=== PATIENT | male | born 1965 | race Caucasian/White ===

== ENCOUNTER 2018-02-25 15:43 | Inpatient (IN) | payer BC ==
[2018-02-25] MEDS ORDERED: NACL 0.9% 3 ML SYG IV (19:00)
[2018-02-25 19:30] LABS: ADD MAN DIFF? NO
[2018-02-25 19:33] LABS: WHITE BLOOD COUNT 9.7 10^3/ul (4.8-10.8)
[2018-02-25 19:33] LABS: BASOPHIL # 0.1 10^3/ul (0.0-0.1); BASOPHILS % 0.8 % (0.0-2.0); EOSINOPHILS # 0.3 10^3/ul (0.0-0.5); EOSINOPHILS % 3.4 % (0.0-7.0); HEMATOCRIT 36.1 % (42.0-52.0); HEMOGLOBIN 11.9 g/dl (14.0-18.0); LYMPHOCYTES # 1.4 10^3/ul (0.8-2.9); LYMPHOCYTES % 14.2 % (15.0-51.0); MEAN CORPUSCULAR HEMOGLOBIN 26.6 pg (29.0-33.0); MEAN CORPUSCULAR VOLUME 80.6 fl (82.0-101.0); MEAN PLATELET VOLUME 10.2 fl (7.4-10.4); MONOCYTES % 9.8 % (0.0-11.0); NEUTROPHIL # 6.9 10^3/ul (1.6-7.5); NEUTROPHILS % 71.3 % (39.0-77.0); PLATELET COUNT 252 10^3/UL (140-415); RED BLOOD COUNT 4.48 10^6/ul (4.70-6.10); RED CELL DISTRIBUTION WIDTH 14.5 % (11.5-14.5)
[2018-02-25 20:03] LABS: ANION GAP 12 (8-16); BLOOD UREA NITROGEN 17 mg/dl (7-20); CALCIUM 8.7 mg/dl (8.4-10.2); CARBON DIOXIDE 23 mmol/L (21-31); CHLORIDE 104 mmol/L (97-110); CREATININE 1.17 mg/dl (0.61-1.24); GLUCOSE 124 mg/dl (70-220); POTASSIUM 4.4 mmol/L (3.5-5.1); SODIUM 135 mmol/L (135-144)
[2018-02-25 20:13] LABS: ERYTHROCYTE SEDIMENTATION RATE 26 mm/Hr (0-20)
[2018-02-25] MEDS ORDERED: GLUCOSE GEL 15 GRAM TUBE BUCCAL (20:30)
[2018-02-25] MEDS ORDERED: GLUCAGON 1 MG INJ IM (20:30)
[2018-02-25] MEDS ORDERED: GLUCOSE GEL 15 GRAM TUBE PO ×2 (20:30)
[2018-02-25] MEDS ORDERED: DEXTROSE 50% 50 ML SYRINGE IV ×2 (20:30)
[2018-02-25] MEDS ORDERED: VANCOMYCIN IV PER PHARMACY XX (21:00)
[2018-02-25] MEDS: INSULIN ASPART [NOVOLOG] 3 ML PEN SC (21:00)
[2018-02-25] MEDS: INSULIN GLARGINE [LANTus] (100 UNITS/ML) SYG SC (21:38)
[2018-02-25] MEDS: PIPER-TAZO 3.375 GM IV (PMX) 100 ML IVPB (22:10)
[2018-02-26] MEDS: CALCIUM CARBONATE 500 MG CHEW TAB PO ×2 (01:02→23:17)
[2018-02-26] MEDS: VANCOMYCIN 2 GM in SOD CHLORIDE 0.9% 500 ML IVPB (01:02)
[2018-02-26] MEDS: PIPER-TAZO 3.375 GM IV (PMX) 100 ML IVPB ×3 (05:51→23:17)
[2018-02-26 06:40] LABS: WHITE BLOOD COUNT 8.2 10^3/ul (4.8-10.8)
[2018-02-26 06:40] LABS: ADD MAN DIFF? NO; BASOPHIL # 0.1 10^3/ul (0.0-0.1); BASOPHILS % 0.9 % (0.0-2.0); EOSINOPHILS # 0.4 10^3/ul (0.0-0.5); EOSINOPHILS % 5.1 % (0.0-7.0); HEMATOCRIT 36.9 % (42.0-52.0); HEMOGLOBIN 11.9 g/dl (14.0-18.0); LYMPHOCYTES # 1.8 10^3/ul (0.8-2.9); MEAN CORPUSCULAR HEMOGLOBIN 26.4 pg (29.0-33.0); MEAN CORPUSCULAR HGB CONC 32.2 g/dl (32.0-37.0); MEAN PLATELET VOLUME 10.5 fl (7.4-10.4); MONOCYTE # 0.9 10^3/ul (0.3-0.9); MONOCYTES % 10.8 % (0.0-11.0); NEUTROPHILS % 60.8 % (39.0-77.0); PLATELET COUNT 251 10^3/UL (140-415); RED CELL DISTRIBUTION WIDTH 14.7 % (11.5-14.5)
[2018-02-26 07:42] LABS: ALANINE AMINOTRANSFERASE 18 IU/L (13-69); ALBUMIN 3.2 g/dl (3.3-4.9); ALBUMIN/GLOBULIN RATIO 0.96; ALKALINE PHOSPHATASE 85 IU/L (42-121); ANION GAP 13 (8-16); ASPARTATE AMINO TRANSFERASE 16 IU/L (15-46); BILIRUBIN,INDIRECT 0.6 mg/dl (0-1.1); BILIRUBIN,TOTAL 0.6 mg/dl (0.2-1.3); BLOOD UREA NITROGEN 18 mg/dl (7-20); CARBON DIOXIDE 27 mmol/L (21-31); CHLORIDE 104 mmol/L (97-110); CREATININE 1.33 mg/dl (0.61-1.24); GLUCOSE 112 mg/dl (70-220); POTASSIUM 4.7 mmol/L (3.5-5.1); SODIUM 139 mmol/L (135-144); TOTAL PROTEIN 6.5 g/dl (6.1-8.1)
[2018-02-26] MEDS: INSULIN ASPART [NOVOLOG] 3 ML PEN SC ×7 (08:00→20:27)
[2018-02-26 08:12] LABS: HEMOGLOBIN A1C 7.1 % (0-5.9)
[2018-02-26] MEDS: ENOXAPARIN 40 MG/0.4 ML SYG SC (08:28)
[2018-02-26] MEDS: VANCOMYCIN 1.25 GM in SOD CHLORIDE 0.9% 250 ML IVPB (13:23)
[2018-02-26] MEDS: HYDROCODONE/APAP (5/325) TAB PO (15:07)
[2018-02-26] MEDS: INSULIN GLARGINE [LANTus] (100 UNITS/ML) SYG SC (20:31)
[2018-02-27] MEDS: VANCOMYCIN 1.25 GM in SOD CHLORIDE 0.9% 250 ML IVPB (03:21)
[2018-02-27] MEDS: PIPER-TAZO 3.375 GM IV (PMX) 100 ML IVPB ×3 (06:10→20:52)
[2018-02-27] MEDS: INSULIN ASPART [NOVOLOG] 3 ML PEN SC ×7 (08:00→21:00)
[2018-02-27] MEDS: ENOXAPARIN 40 MG/0.4 ML SYG SC (08:01)
[2018-02-27 14:11] LABS: VANCOMYCIN,TROUGH 18.4 ug/ml (10.0-20.0)
[2018-02-27] MEDS: VANCOMYCIN 1 GM 250 ML IVPB (17:39)
[2018-02-27] MEDS: INSULIN GLARGINE [LANTus] (100 UNITS/ML) SYG SC (20:53)
[2018-02-28] MEDS: CALCIUM CARBONATE 500 MG CHEW TAB PO (02:34)
[2018-02-28] MEDS: PIPER-TAZO 3.375 GM IV (PMX) 100 ML IVPB ×3 (05:37→21:48)
[2018-02-28] MEDS: VANCOMYCIN 1 GM 250 ML IVPB (06:11)
[2018-02-28 07:27] LABS: CREATININE 1.35 mg/dl (0.61-1.24)
[2018-02-28 07:27] LABS: BLOOD UREA NITROGEN 21 mg/dl (7-20)
[2018-02-28] MEDS: INSULIN ASPART [NOVOLOG] 3 ML PEN SC ×7 (08:00→20:26)
[2018-02-28] MEDS: ENOXAPARIN 40 MG/0.4 ML SYG SC (09:44)
[2018-02-28] MEDS: DAPTOMYCIN IVPB (13:42)
[2018-02-28] MEDS: SOD CHLORIDE 0.9% IVPB (13:42)
[2018-02-28] MEDS: INSULIN GLARGINE [LANTus] (100 UNITS/ML) SYG SC (20:23)
[2018-03-01] MEDS: PIPER-TAZO 3.375 GM IV (PMX) 100 ML IVPB (05:26)
[2018-03-01 06:53] LABS: CREATINE KINASE 35 IU/L (23-200)
[2018-03-01] MEDS ORDERED: LIDOCAINE 2% (SDV) 5 ML INJ (07:00)
[2018-03-01] MEDS: INSULIN ASPART [NOVOLOG] 3 ML PEN SC ×8 (08:00→20:30)
[2018-03-01] MEDS ORDERED: MINERAL OIL LIGHT 10 ML VIAL (08:53)
[2018-03-01] MEDS: ENOXAPARIN 40 MG/0.4 ML SYG SC (09:00)
[2018-03-01] MEDS ORDERED: PROPOFOL 20 ML (09:17)
[2018-03-01] MEDS: LIDOCAINE 1% (MDV) 20 ML INJ (10:05)
[2018-03-01] MEDS: POLYMYXIN/BACITRACIN 1L IRRIG (10:07)
[2018-03-01] MEDS ORDERED: NEOSTIGMINE 3 MG/3 ML SYRINGE (10:19)
[2018-03-01] MEDS ORDERED: ROCURONIUM 50 MG INJ ×2 (10:19→10:20)
[2018-03-01] MEDS ORDERED: GLYCOPYRROLATE 0.4 MG INJ (10:19)
[2018-03-01] MEDS ORDERED: METOCLOPRAMIDE 10 MG INJ IV (11:00)
[2018-03-01] MEDS ORDERED: ONDANSETRON 4 MG INJ IV (11:00)
[2018-03-01] MEDS ORDERED: MEPERIDINE 25 MG INJ IV (11:00)
[2018-03-01] MEDS ORDERED: FENTAnyl 50 MCG/ML VIAL IV ×3 (11:00)
[2018-03-01] MEDS ORDERED: DIPHENHYDRAMINE 50 MG INJ IV (11:00)
[2018-03-01] MEDS ORDERED: EPHEDrine SULFATE 50 MG/5 ML SYG IV (11:00)
[2018-03-01] MEDS ORDERED: ALBUTEROL 0.083% (NEB) 2.5 MG/3 ML AMP HHN (11:00)
[2018-03-01] MEDS ORDERED: MIDAZOLAM 1 MG/ML 2 ML INJ IV (11:00)
[2018-03-01] MEDS ORDERED: LABETALOL HCL 20MG INJ IV (11:00)
[2018-03-01] MEDS ORDERED: HYDROmorphONE 1 MG/5 ML IV SYRINGE IV ×3 (11:00)
[2018-03-01] MEDS ORDERED: OXYCODONE/ACETAMINOPHEN (5/325) TAB PO ×2 (11:00)
[2018-03-01] MEDS ORDERED: hydrALAzine 20 MG INJ IV (11:00)
[2018-03-01] MEDS: SOD CHLORIDE 0.9% IVPB (12:31)
[2018-03-01] MEDS: DAPTOMYCIN IVPB (12:31)
[2018-03-01] MEDS: HYDROCODONE/APAP (5/325) TAB PO ×2 (12:39→16:10)
[2018-03-01] MEDS: CIPROFLOXACIN 500 MG TAB PO (17:50)
[2018-03-01] MEDS: INSULIN GLARGINE [LANTus] (100 UNITS/ML) SYG SC (20:29)
[2018-03-01] MEDS: CALCIUM CARBONATE 500 MG CHEW TAB PO (23:52)
[2018-03-02] MEDS: CIPROFLOXACIN 500 MG TAB PO ×2 (07:02→17:24)
[2018-03-02] MEDS: INSULIN ASPART [NOVOLOG] 3 ML PEN SC ×7 (08:00→21:03)
[2018-03-02] MEDS: ENOXAPARIN 40 MG/0.4 ML SYG SC (08:50)
[2018-03-02] MEDS: DAPTOMYCIN IVPB (12:53)
[2018-03-02] MEDS: SOD CHLORIDE 0.9% IVPB (12:53)
[2018-03-02] MEDS: HYDROCODONE/APAP (5/325) TAB PO (13:36)
[2018-03-02] MEDS: CALCIUM CARBONATE 500 MG CHEW TAB PO (20:58)
[2018-03-02] MEDS: INSULIN GLARGINE [LANTus] (100 UNITS/ML) SYG SC (21:02)
[2018-03-03] MEDS: CIPROFLOXACIN 500 MG TAB PO ×2 (05:47→17:09)
[2018-03-03] MEDS: INSULIN ASPART [NOVOLOG] 3 ML PEN SC ×7 (08:00→20:51)
[2018-03-03] MEDS: ENOXAPARIN 40 MG/0.4 ML SYG SC (08:08)
[2018-03-03] MEDS: CALCIUM CARBONATE 500 MG CHEW TAB PO (12:35)
[2018-03-03] MEDS: DAPTOMYCIN IVPB (12:35)
[2018-03-03] MEDS: SOD CHLORIDE 0.9% IVPB (12:35)
[2018-03-03 12:52] LABS: PROCALCITONIN <0.10 ng/mL (<0.10)
[2018-03-03] MEDS: INSULIN GLARGINE [LANTus] (100 UNITS/ML) SYG SC (20:52)
[2018-03-04] MEDS: CALCIUM CARBONATE 500 MG CHEW TAB PO (03:49)
[2018-03-04] MEDS: CIPROFLOXACIN 500 MG TAB PO ×2 (06:32→17:28)
[2018-03-04] MEDS: INSULIN ASPART [NOVOLOG] 3 ML PEN SC ×8 (08:00→20:39)
[2018-03-04] MEDS: ENOXAPARIN 40 MG/0.4 ML SYG SC (08:59)
[2018-03-04] MEDS ORDERED: PNEUMOC 13-VAL CONJ-DIP CRM/PF 0.5 ML SYR IM* (11:30)
[2018-03-04] MEDS: DAPTOMYCIN IVPB (12:23)
[2018-03-04] MEDS: SOD CHLORIDE 0.9% IVPB (12:23)
[2018-03-04] MEDS: HYDROCODONE/APAP (5/325) TAB PO (12:29)
[2018-03-04 12:37] LABS: BLOOD UREA NITROGEN 29 mg/dl (7-20)
[2018-03-04 12:37] LABS: CREATININE 1.26 mg/dl (0.61-1.24)
[2018-03-04] MEDS: PNEUMOC 13-VAL CONJ-DIP CRM/PF 0.5 ML SYR IM* (14:40)
[2018-03-04] MEDS ORDERED: VANCOMYCIN IV PER PHARMACY XX (16:00)
[2018-03-04] MEDS: VANCOMYCIN 2 GM in SOD CHLORIDE 0.9% 500 ML IVPB (18:40)
[2018-03-04] MEDS: INSULIN GLARGINE [LANTus] (100 UNITS/ML) SYG SC (20:39)
[2018-03-05] MEDS: VANCOMYCIN 1 GM 250 ML IVPB ×2 (05:57→17:33)
[2018-03-05] MEDS: CIPROFLOXACIN 500 MG TAB PO ×2 (05:57→17:33)
[2018-03-05] MEDS: INSULIN ASPART [NOVOLOG] 3 ML PEN SC ×7 (08:00→20:14)
[2018-03-05] MEDS: HYDROCODONE/APAP (5/325) TAB PO (08:26)
[2018-03-05] MEDS: ENOXAPARIN 40 MG/0.4 ML SYG SC (08:30)
[2018-03-05] MEDS: LIDOCAINE 1% (MPF) 5 ML VIAL SC (11:00)
[2018-03-05] MEDS: INSULIN GLARGINE [LANTus] (100 UNITS/ML) SYG SC (20:13)
[2018-03-06] MEDS: CALCIUM CARBONATE 500 MG CHEW TAB PO (01:32)
[2018-03-06 06:48] LABS: CREATININE 1.17 mg/dl (0.61-1.24)
[2018-03-06 06:48] LABS: BLOOD UREA NITROGEN 28 mg/dl (7-20)
[2018-03-06 06:50] LABS: VANCOMYCIN,TROUGH 13.8 ug/ml (10.0-20.0)
[2018-03-06] MEDS: VANCOMYCIN 1 GM 250 ML IVPB ×2 (07:03→17:02)
[2018-03-06] MEDS: CIPROFLOXACIN 500 MG TAB PO ×2 (07:04→17:02)
[2018-03-06] MEDS: INSULIN ASPART [NOVOLOG] 3 ML PEN SC ×7 (08:00→21:00)
[2018-03-06] MEDS: ENOXAPARIN 40 MG/0.4 ML SYG SC (08:25)
[2018-03-06] MEDS: HYDROCODONE/APAP (5/325) TAB PO (08:53)
[2018-03-06] MEDS: INSULIN GLARGINE [LANTus] (100 UNITS/ML) SYG SC (21:37)
[2018-03-07] MEDS: CALCIUM CARBONATE 500 MG CHEW TAB PO (02:02)
[2018-03-07] MEDS: CIPROFLOXACIN 500 MG TAB PO ×2 (05:42→17:20)
[2018-03-07] MEDS: VANCOMYCIN 1 GM 250 ML IVPB ×2 (05:44→17:21)
[2018-03-07] MEDS: HYDROCODONE/APAP (5/325) TAB PO (07:52)
[2018-03-07] MEDS: INSULIN ASPART [NOVOLOG] 3 ML PEN SC ×7 (08:00→20:54)
[2018-03-07] MEDS: ENOXAPARIN 40 MG/0.4 ML SYG SC (08:40)
[2018-03-07] MEDS: INSULIN GLARGINE [LANTus] (100 UNITS/ML) SYG SC (20:53)
[2018-03-08] MEDS: CALCIUM CARBONATE 500 MG CHEW TAB PO ×2 (00:23→23:05)
[2018-03-08] MEDS: VANCOMYCIN 1 GM 250 ML IVPB ×2 (05:14→17:31)
[2018-03-08] MEDS: CIPROFLOXACIN 500 MG TAB PO ×2 (05:14→17:31)
[2018-03-08] MEDS: HYDROCODONE/APAP (5/325) TAB PO (05:31)
[2018-03-08] MEDS: INSULIN ASPART [NOVOLOG] 3 ML PEN SC ×7 (08:00→20:08)
[2018-03-08] MEDS: ENOXAPARIN 40 MG/0.4 ML SYG SC (08:28)
[2018-03-08] MEDS: INSULIN GLARGINE [LANTus] (100 UNITS/ML) SYG SC (20:08)
[2018-03-09] MEDS: VANCOMYCIN 1 GM 250 ML IVPB ×2 (05:36→17:54)
[2018-03-09] MEDS: CIPROFLOXACIN 500 MG TAB PO ×2 (05:36→17:54)
[2018-03-09] MEDS: INSULIN ASPART [NOVOLOG] 3 ML PEN SC ×7 (08:20→20:04)
[2018-03-09] MEDS: ENOXAPARIN 40 MG/0.4 ML SYG SC (08:22)
[2018-03-09] MEDS: HYDROCODONE/APAP (5/325) TAB PO (09:27)
[2018-03-09 10:46] LABS: CREATININE 1.12 mg/dl (0.61-1.24)
[2018-03-09 10:46] LABS: BLOOD UREA NITROGEN 28 mg/dl (7-20)
[2018-03-09 18:01] LABS: VANCOMYCIN,TROUGH 15.4 ug/ml (10.0-20.0)
[2018-03-09] MEDS: INSULIN GLARGINE [LANTus] (100 UNITS/ML) SYG SC (20:05)
[2018-03-10] MEDS: CALCIUM CARBONATE 500 MG CHEW TAB PO (02:16)
[2018-03-10] MEDS: CIPROFLOXACIN 500 MG TAB PO ×2 (05:54→17:37)
[2018-03-10] MEDS: VANCOMYCIN 1 GM 250 ML IVPB ×2 (05:58→17:37)
[2018-03-10] MEDS: INSULIN ASPART [NOVOLOG] 3 ML PEN SC ×7 (08:00→20:45)
[2018-03-10] MEDS: ENOXAPARIN 40 MG/0.4 ML SYG SC (09:02)
[2018-03-10] MEDS: HYDROCODONE/APAP (5/325) TAB PO (12:36)
[2018-03-10] MEDS: INSULIN GLARGINE [LANTus] (100 UNITS/ML) SYG SC (20:44)
[2018-03-10] MEDS: L ACIDOPHIL/B LACTIS/B LONGUM CAPSULE PO (20:45)
[2018-03-11] MEDS: CALCIUM CARBONATE 500 MG CHEW TAB PO ×2 (01:14→21:13)
[2018-03-11] MEDS: VANCOMYCIN 1 GM 250 ML IVPB ×2 (06:15→17:10)
[2018-03-11] MEDS: CIPROFLOXACIN 500 MG TAB PO ×2 (06:31→17:10)
[2018-03-11] MEDS: L ACIDOPHIL/B LACTIS/B LONGUM CAPSULE PO ×2 (08:26→20:47)
[2018-03-11] MEDS: HYDROCODONE/APAP (5/325) TAB PO (08:26)
[2018-03-11] MEDS: INSULIN ASPART [NOVOLOG] 3 ML PEN SC ×7 (08:31→20:51)
[2018-03-11] MEDS: ENOXAPARIN 40 MG/0.4 ML SYG SC (08:32)
[2018-03-11 08:48] LABS: BLOOD UREA NITROGEN 29 mg/dl (7-20)
[2018-03-11] MEDS: ATORVASTATIN 40 MG TAB PO (20:46)
[2018-03-11] MEDS: INSULIN GLARGINE [LANTus] (100 UNITS/ML) SYG SC (20:48)
[2018-03-12] MEDS: HYDROCODONE/APAP (5/325) TAB PO (02:02)
[2018-03-12] MEDS: CIPROFLOXACIN 500 MG TAB PO ×2 (05:19→17:23)
[2018-03-12] MEDS: VANCOMYCIN 1 GM 250 ML IVPB ×2 (05:22→17:23)
[2018-03-12] MEDS: ASPIRIN 81 MG TAB PO (08:30)
[2018-03-12] MEDS: L ACIDOPHIL/B LACTIS/B LONGUM CAPSULE PO ×2 (08:30→20:16)
[2018-03-12] MEDS: INSULIN ASPART [NOVOLOG] 3 ML PEN SC ×7 (08:35→20:20)
[2018-03-12] MEDS: ENOXAPARIN 40 MG/0.4 ML SYG SC (08:35)
[2018-03-12] MEDS: ATORVASTATIN 40 MG TAB PO ×2 (20:16→20:24)
[2018-03-12] MEDS: CALCIUM CARBONATE 500 MG CHEW TAB PO (20:16)
[2018-03-12] MEDS: INSULIN GLARGINE [LANTus] (100 UNITS/ML) SYG SC (20:19)
[2018-03-13] MEDS: CIPROFLOXACIN 500 MG TAB PO ×2 (06:33→17:17)
[2018-03-13] MEDS ORDERED: VANCOMYCIN 1 GM 250 ML IVPB (07:00)
[2018-03-13] MEDS: INSULIN ASPART [NOVOLOG] 3 ML PEN SC ×7 (08:00→21:00)
[2018-03-13] MEDS: ASPIRIN 81 MG TAB PO ×2 (08:33→09:00)
[2018-03-13] MEDS: L ACIDOPHIL/B LACTIS/B LONGUM CAPSULE PO ×2 (08:33→21:41)
[2018-03-13] MEDS: MULTIVITAMINS THERAPEUTIC TAB PO (08:34)
[2018-03-13] MEDS: VANCOMYCIN 1 GM 250 ML IVPB ×2 (08:34→21:41)
[2018-03-13] MEDS: HYDROCODONE/APAP (5/325) TAB PO (08:43)
[2018-03-13] MEDS: ENOXAPARIN 40 MG/0.4 ML SYG SC (08:55)
[2018-03-13] MEDS: ALTEPLASE (CATHFLO) 2 MG INJ CATHETER (15:17)
[2018-03-13] MEDS: ATORVASTATIN 40 MG TAB PO (21:41)
[2018-03-13] MEDS: INSULIN GLARGINE [LANTus] (100 UNITS/ML) SYG SC (21:43)
[2018-03-13] MEDS: CALCIUM CARBONATE 500 MG CHEW TAB PO (22:44)
[2018-03-14] MEDS: CIPROFLOXACIN 500 MG TAB PO ×2 (05:22→17:44)
[2018-03-14] MEDS: HYDROCODONE/APAP (5/325) TAB PO (06:28)
[2018-03-14 06:41] LABS: BLOOD UREA NITROGEN 35 mg/dl (7-20)
[2018-03-14 06:41] LABS: CREATININE 1.17 mg/dl (0.61-1.24)
[2018-03-14] MEDS: INSULIN ASPART [NOVOLOG] 3 ML PEN SC ×7 (08:55→20:35)
[2018-03-14] MEDS: VANCOMYCIN 1 GM 250 ML IVPB ×2 (08:56→20:32)
[2018-03-14] MEDS: ASPIRIN 81 MG TAB PO (09:34)
[2018-03-14] MEDS: L ACIDOPHIL/B LACTIS/B LONGUM CAPSULE PO ×2 (09:34→20:31)
[2018-03-14] MEDS: MULTIVITAMINS THERAPEUTIC TAB PO (09:34)
[2018-03-14] MEDS: ENOXAPARIN 40 MG/0.4 ML SYG SC (09:35)
[2018-03-14] MEDS: INSULIN GLARGINE [LANTus] (100 UNITS/ML) SYG SC (20:33)
[2018-03-14] MEDS: ATORVASTATIN 40 MG TAB PO (20:35)
[2018-03-14] MEDS: CALCIUM CARBONATE 500 MG CHEW TAB PO (23:44)
[2018-03-15] MEDS: CIPROFLOXACIN 500 MG TAB PO ×2 (05:39→17:49)
[2018-03-15] MEDS: INSULIN ASPART [NOVOLOG] 3 ML PEN SC ×7 (08:00→20:14)
[2018-03-15] MEDS: L ACIDOPHIL/B LACTIS/B LONGUM CAPSULE PO ×2 (08:35→20:06)
[2018-03-15] MEDS: VANCOMYCIN 1 GM 250 ML IVPB ×2 (08:35→20:06)
[2018-03-15] MEDS: ASPIRIN 81 MG TAB PO (08:35)
[2018-03-15] MEDS: MULTIVITAMINS THERAPEUTIC TAB PO (08:35)
[2018-03-15] MEDS: ENOXAPARIN 40 MG/0.4 ML SYG SC (08:40)
[2018-03-15] MEDS: HYDROCODONE/APAP (5/325) TAB PO (11:05)
[2018-03-15] MEDS: INSULIN GLARGINE [LANTus] (100 UNITS/ML) SYG SC (20:07)
[2018-03-15] MEDS: ATORVASTATIN 40 MG TAB PO (20:14)
[2018-03-16] MEDS: CALCIUM CARBONATE 500 MG CHEW TAB PO ×2 (00:23→22:04)
[2018-03-16] MEDS: CIPROFLOXACIN 500 MG TAB PO ×2 (06:01→17:13)
[2018-03-16 06:55] LABS: CREATININE 1.08 mg/dl (0.61-1.24)
[2018-03-16 06:55] LABS: BLOOD UREA NITROGEN 28 mg/dl (7-20)
[2018-03-16] MEDS: INSULIN ASPART [NOVOLOG] 3 ML PEN SC ×7 (08:00→21:00)
[2018-03-16] MEDS: VANCOMYCIN 1 GM 250 ML IVPB ×2 (08:30→20:53)
[2018-03-16] MEDS: ASPIRIN 81 MG TAB PO (08:30)
[2018-03-16] MEDS: MULTIVITAMINS THERAPEUTIC TAB PO (08:30)
[2018-03-16] MEDS: L ACIDOPHIL/B LACTIS/B LONGUM CAPSULE PO ×2 (08:30→20:53)
[2018-03-16] MEDS: ENOXAPARIN 40 MG/0.4 ML SYG SC (08:32)
[2018-03-16] MEDS: HYDROCODONE/APAP (5/325) TAB PO (12:04)
[2018-03-16] MEDS: INSULIN GLARGINE [LANTus] (100 UNITS/ML) SYG SC (20:54)
[2018-03-16] MEDS: ATORVASTATIN 40 MG TAB PO (21:00)
[2018-03-17] MEDS: CIPROFLOXACIN 500 MG TAB PO ×2 (06:05→17:05)
[2018-03-17] MEDS: HYDROCODONE/APAP (5/325) TAB PO (06:07)
[2018-03-17 07:55] LABS: VANCOMYCIN,TROUGH 16.6 ug/ml (10.0-20.0)
[2018-03-17] MEDS: INSULIN ASPART [NOVOLOG] 3 ML PEN SC ×7 (08:00→20:02)
[2018-03-17] MEDS: ASPIRIN 81 MG TAB PO (08:23)
[2018-03-17] MEDS: MULTIVITAMINS THERAPEUTIC TAB PO (08:23)
[2018-03-17] MEDS: L ACIDOPHIL/B LACTIS/B LONGUM CAPSULE PO ×2 (08:23→20:03)
[2018-03-17] MEDS: ENOXAPARIN 40 MG/0.4 ML SYG SC (08:25)
[2018-03-17] MEDS: VANCOMYCIN 1 GM 250 ML IVPB ×3 (08:26→20:15)
[2018-03-17] MEDS: INSULIN GLARGINE [LANTus] (100 UNITS/ML) SYG SC (20:01)
[2018-03-17] MEDS: ATORVASTATIN 40 MG TAB PO (20:05)
[2018-03-17] MEDS: CALCIUM CARBONATE 500 MG CHEW TAB PO (20:25)
[2018-03-18] MEDS: CIPROFLOXACIN 500 MG TAB PO ×2 (05:28→17:49)
[2018-03-18] MEDS: INSULIN ASPART [NOVOLOG] 3 ML PEN SC ×7 (08:00→21:00)
[2018-03-18] MEDS: L ACIDOPHIL/B LACTIS/B LONGUM CAPSULE PO ×2 (08:21→20:55)
[2018-03-18] MEDS: MULTIVITAMINS THERAPEUTIC TAB PO ×3 (08:21→20:55)
[2018-03-18] MEDS: ASPIRIN 81 MG TAB PO ×2 (08:21→09:00)
[2018-03-18] MEDS: ENOXAPARIN 40 MG/0.4 ML SYG SC (08:23)
[2018-03-18] MEDS: HYDROCODONE/APAP (5/325) TAB PO (08:24)
[2018-03-18] MEDS: VANCOMYCIN 1 GM 250 ML IVPB ×2 (09:38→20:55)
[2018-03-18] MEDS: ALEVE 220 MG PO (14:35)
[2018-03-18] MEDS: ATORVASTATIN 40 MG TAB PO (20:55)
[2018-03-18] MEDS: INSULIN GLARGINE [LANTus] (100 UNITS/ML) SYG SC (20:58)
[2018-03-19] MEDS: CIPROFLOXACIN 500 MG TAB PO ×2 (05:21→17:21)
[2018-03-19] MEDS: VANCOMYCIN 1 GM 250 ML IVPB ×2 (08:12→20:14)
[2018-03-19] MEDS: ASPIRIN 81 MG TAB PO (08:13)
[2018-03-19] MEDS: L ACIDOPHIL/B LACTIS/B LONGUM CAPSULE PO ×2 (08:13→20:14)
[2018-03-19] MEDS: HYDROCODONE/APAP (5/325) TAB PO (08:15)
[2018-03-19] MEDS: INSULIN ASPART [NOVOLOG] 3 ML PEN SC ×7 (08:17→20:14)
[2018-03-19] MEDS: ENOXAPARIN 40 MG/0.4 ML SYG SC (08:17)
[2018-03-19] MEDS: ALEVE 220 MG PO (12:03)
[2018-03-19] MEDS: INSULIN GLARGINE [LANTus] (100 UNITS/ML) SYG SC (20:13)
[2018-03-19] MEDS: MULTIVITAMINS THERAPEUTIC TAB PO (20:13)
[2018-03-19] MEDS: ATORVASTATIN 40 MG TAB PO ×2 (20:14→20:22)
[2018-03-19] MEDS: CALCIUM CARBONATE 500 MG CHEW TAB PO (22:14)
[2018-03-20] MEDS: CIPROFLOXACIN 500 MG TAB PO ×2 (05:08→17:03)
[2018-03-20] MEDS: HYDROCODONE/APAP (5/325) TAB PO (06:21)
[2018-03-20 06:58] LABS: BLOOD UREA NITROGEN 26 mg/dl (7-20)
[2018-03-20 06:58] LABS: CREATININE 1.19 mg/dl (0.61-1.24)
[2018-03-20] MEDS: VANCOMYCIN 1 GM 250 ML IVPB ×2 (08:23→20:30)
[2018-03-20] MEDS: L ACIDOPHIL/B LACTIS/B LONGUM CAPSULE PO ×2 (08:23→20:31)
[2018-03-20] MEDS: INSULIN ASPART [NOVOLOG] 3 ML PEN SC ×7 (08:27→20:33)
[2018-03-20] MEDS: ENOXAPARIN 40 MG/0.4 ML SYG SC (08:47)
[2018-03-20] MEDS: ASPIRIN 81 MG TAB PO (09:00)
[2018-03-20] MEDS: ALEVE 220 MG PO (10:18)
[2018-03-20] MEDS: MULTIVITAMINS THERAPEUTIC TAB PO (20:31)
[2018-03-20] MEDS: ATORVASTATIN 40 MG TAB PO ×2 (20:31→20:45)
[2018-03-20] MEDS: INSULIN GLARGINE [LANTus] (100 UNITS/ML) SYG SC (20:33)
[2018-03-21] MEDS: CALCIUM CARBONATE 500 MG CHEW TAB PO (00:06)
[2018-03-21] MEDS: CIPROFLOXACIN 500 MG TAB PO ×2 (05:59→17:17)
[2018-03-21] MEDS: HYDROCODONE/APAP (5/325) TAB PO ×2 (07:52→15:08)
[2018-03-21] MEDS: INSULIN ASPART [NOVOLOG] 3 ML PEN SC ×7 (08:00→20:55)
[2018-03-21] MEDS: VANCOMYCIN 1 GM 250 ML IVPB (08:00)
[2018-03-21] MEDS: ASPIRIN 81 MG TAB PO ×2 (08:19→08:26)
[2018-03-21] MEDS: L ACIDOPHIL/B LACTIS/B LONGUM CAPSULE PO ×2 (08:19→20:47)
[2018-03-21] MEDS: ENOXAPARIN 40 MG/0.4 ML SYG SC (08:20)
[2018-03-21] MEDS: ALEVE 220 MG PO (10:10)
[2018-03-21] MEDS: MULTIVITAMINS THERAPEUTIC TAB PO (20:48)
[2018-03-21] MEDS: INSULIN GLARGINE [LANTus] (100 UNITS/ML) SYG SC (20:49)
[2018-03-21] MEDS: ATORVASTATIN 40 MG TAB PO (20:49)
[2018-03-22] MEDS: CALCIUM CARBONATE 500 MG CHEW TAB PO (02:36)
[2018-03-22] MEDS: CIPROFLOXACIN 500 MG TAB PO ×2 (06:08→17:10)
[2018-03-22] MEDS: HYDROCODONE/APAP (5/325) TAB PO (08:22)
[2018-03-22] MEDS: L ACIDOPHIL/B LACTIS/B LONGUM CAPSULE PO ×2 (08:22→20:00)
[2018-03-22] MEDS: VANCOMYCIN 1.25 GM in SOD CHLORIDE 0.9% 250 ML IVPB (08:25)
[2018-03-22] MEDS: INSULIN ASPART [NOVOLOG] 3 ML PEN SC ×7 (08:30→20:15)
[2018-03-22] MEDS: ENOXAPARIN 40 MG/0.4 ML SYG SC (08:32)
[2018-03-22] MEDS: ASPIRIN 81 MG TAB PO (08:45)
[2018-03-22] MEDS: ALEVE 220 MG PO (10:05)
[2018-03-22] MEDS: MULTIVITAMINS THERAPEUTIC TAB PO (20:00)
[2018-03-22] MEDS: INSULIN GLARGINE [LANTus] (100 UNITS/ML) SYG SC (20:01)
[2018-03-22] MEDS: ATORVASTATIN 40 MG TAB PO (20:06)
[2018-03-23] MEDS: CALCIUM CARBONATE 500 MG CHEW TAB PO (01:49)
[2018-03-23] MEDS: CIPROFLOXACIN 500 MG TAB PO (05:52)
[2018-03-23] MEDS: HYDROCODONE/APAP (5/325) TAB PO ×2 (06:27→14:01)
[2018-03-23 07:39] LABS: CREATININE 1.31 mg/dl (0.61-1.24)
[2018-03-23 07:39] LABS: BLOOD UREA NITROGEN 30 mg/dl (7-20)
[2018-03-23] MEDS: VANCOMYCIN 1.25 GM in SOD CHLORIDE 0.9% 250 ML IVPB (08:26)
[2018-03-23] MEDS: L ACIDOPHIL/B LACTIS/B LONGUM CAPSULE PO (08:26)
[2018-03-23] MEDS: ASPIRIN 81 MG TAB PO (08:27)
[2018-03-23] MEDS: ENOXAPARIN 40 MG/0.4 ML SYG SC (08:28)
[2018-03-23] MEDS: INSULIN ASPART [NOVOLOG] 3 ML PEN SC ×4 (08:32→12:47)
== END 2018-03-23 17:30 | DRG 623 ==
LOC: 5EC 15:43
PROVIDERS: Internal Medicine
PROC: 0L8N0ZZ Division of Right Lower Leg Tendon, Open Approach (ICD-10-PCS; principal; 2018-03-01 09:36)
PROC: 0JBQ0ZZ Excision of Right Foot Subcutaneous Tissue and Fascia, Open Approach (ICD-10-PCS; 2018-03-01 09:36)
PROC: 0HRMXK3 Replacement of Right Foot Skin with Nonautologous Tissue Substitute, Full Thickness, External Approach (ICD-10-PCS; 2018-03-01 09:36)
PROC: 0QBN0ZX Excision of Right Metatarsal, Open Approach, Diagnostic (ICD-10-PCS; 2018-03-01 09:36)
PROC: 0JBR0ZZ Excision of Left Foot Subcutaneous Tissue and Fascia, Open Approach (ICD-10-PCS; 2018-03-01 09:36)
PROC: 0JBQ0ZZ Excision of Right Foot Subcutaneous Tissue and Fascia, Open Approach (ICD-10-PCS; 2018-03-01 09:36)
PROC: 0JBQ0ZX Excision of Right Foot Subcutaneous Tissue and Fascia, Open Approach, Diagnostic (ICD-10-PCS; 2018-03-01 09:36)
PROC: 02HV33Z Insertion of Infusion Device into Superior Vena Cava, Percutaneous Approach (ICD-10-PCS; 2018-03-01 09:36)
DX: E11.69 Type 2 diabetes mellitus with other specified complication (principal); M86.9 Osteomyelitis, unspecified; L03.115 Cellulitis of right lower limb; E11.628 Type 2 diabetes mellitus with other skin complications; E11.621 Type 2 diabetes mellitus with foot ulcer; E11.42 Type 2 diabetes mellitus with diabetic polyneuropathy; E11.51 Type 2 diabetes mellitus with diabetic peripheral angiopathy without gangrene; E66.01 Morbid (severe) obesity due to excess calories; L97.519 Non-pressure chronic ulcer of other part of right foot with unspecified severity; L84 Corns and callosities; M21.6X1 Other acquired deformities of right foot; M20.42 Other hammer toe(s) (acquired), left foot; M20.12 Hallux valgus (acquired), left foot; R60.0 Localized edema; B95.62 Methicillin resistant Staphylococcus aureus infection as the cause of diseases classified elsewhere; B95.2 Enterococcus as the cause of diseases classified elsewhere; B96.89 Other specified bacterial agents as the cause of diseases classified elsewhere; B96.4 Proteus (mirabilis) (morganii) as the cause of diseases classified elsewhere; Z89.431 Acquired absence of right foot; Z68.32 Body mass index [BMI] 32.0-32.9, adult
CPT/HCPCS: 36569; 71045; 73630; 73718; 76937; 80048; 80053; 80202; 82550; 82565; 82962; 83036; 84145; 84520; 85025; 85651; 86140; 87070; 87075; 87102; 88304; 88311; 90670; 93922; 97110; 97162; 97530

== ENCOUNTER 2018-04-08 17:30 | Inpatient (IN) | payer BC ==
[2018-04-08] MEDS ORDERED: NACL 0.9% 3 ML SYG IV (19:00)
[2018-04-08] MEDS ORDERED: VANCOMYCIN IV PER PHARMACY XX (19:00)
[2018-04-08] MEDS ORDERED: GLUCAGON 1 MG INJ IM (19:00)
[2018-04-08] MEDS ORDERED: GLUCOSE GEL 15 GRAM TUBE PO ×2 (19:00)
[2018-04-08] MEDS ORDERED: GLUCOSE GEL 15 GRAM TUBE BUCCAL (19:00)
[2018-04-08] MEDS ORDERED: DEXTROSE 50% 50 ML SYRINGE IV ×2 (19:00)
[2018-04-08] MEDS ORDERED: IBUPROFEN 600 MG TAB PO (19:00)
[2018-04-08 19:18] LABS: ADD MAN DIFF? NO
[2018-04-08 19:19] LABS: BASOPHIL # 0.1 10^3/ul (0.0-0.1); BASOPHILS % 0.8 % (0.0-2.0); EOSINOPHILS # 0.3 10^3/ul (0.0-0.5); EOSINOPHILS % 3.2 % (0.0-7.0); HEMATOCRIT 33.4 % (42.0-52.0); HEMOGLOBIN 11.1 g/dl (14.0-18.0); LYMPHOCYTES % 24.9 % (15.0-51.0); MEAN CORPUSCULAR HEMOGLOBIN 27.7 pg (29.0-33.0); MEAN CORPUSCULAR HGB CONC 33.2 g/dl (32.0-37.0); MEAN CORPUSCULAR VOLUME 83.3 fl (82.0-101.0); MEAN PLATELET VOLUME 9.7 fl (7.4-10.4); MONOCYTE # 0.8 10^3/ul (0.3-0.9); MONOCYTES % 10.5 % (0.0-11.0); NEUTROPHIL # 4.8 10^3/ul (1.6-7.5); NEUTROPHILS % 60.2 % (39.0-77.0); PLATELET COUNT 221 10^3/UL (140-415); RED BLOOD COUNT 4.01 10^6/ul (4.70-6.10); RED CELL DISTRIBUTION WIDTH 14.9 % (11.5-14.5)
[2018-04-08 19:19] LABS: WHITE BLOOD COUNT 7.9 10^3/ul (4.8-10.8)
[2018-04-08 19:46] LABS: ALANINE AMINOTRANSFERASE 20 IU/L (13-69); ALBUMIN 4.1 g/dl (3.3-4.9); ALBUMIN/GLOBULIN RATIO 1.64; ALKALINE PHOSPHATASE 68 IU/L (42-121); ANION GAP 8 (5-13); ASPARTATE AMINO TRANSFERASE 16 IU/L (15-46); BILIRUBIN,INDIRECT 0.4 mg/dl (0-1.1); BILIRUBIN,TOTAL 0.4 mg/dl (0.2-1.3); BLOOD UREA NITROGEN 17 mg/dl (7-20); CARBON DIOXIDE 25 mmol/L (21-31); CHLORIDE 105 mmol/L (97-110); CREATININE 1.15 mg/dl (0.61-1.24); Estimated GFR > 60 mL/min (>60); GLUCOSE 125 mg/dl (70-220); MAGNESIUM 2.1 mg/dl (1.7-2.5); PHOSPHORUS 3.7 mg/dl (2.5-4.9); POTASSIUM 4.3 mmol/L (3.5-5.1); SODIUM 138 mmol/L (135-144); TOTAL PROTEIN 6.6 g/dl (6.1-8.1)
[2018-04-08] MEDS: CIPROFLOXACIN 500 MG TAB PO (20:38)
[2018-04-08] MEDS: ATORVASTATIN 40 MG TAB PO (20:41)
[2018-04-08] MEDS: INSULIN ASPART [NOVOLOG] 3 ML PEN SC (20:41)
[2018-04-08] MEDS ORDERED: ALBUTEROL 0.083% (NEB) 2.5 MG/3 ML AMP HHN ×2 (21:00)
[2018-04-08] MEDS: VANCOMYCIN 2 GM in SOD CHLORIDE 0.9% 500 ML IVPB (21:26)
[2018-04-09] MEDS: CALCIUM CARBONATE 500 MG CHEW TAB PO (01:44)
[2018-04-09] MEDS: ACCU-CHEK XX (02:00)
[2018-04-09] MEDS: CIPROFLOXACIN 500 MG TAB PO ×2 (05:49→17:52)
[2018-04-09 06:21] LABS: ADD MAN DIFF? NO
[2018-04-09 06:32] LABS: WHITE BLOOD COUNT 6.5 10^3/ul (4.8-10.8)
[2018-04-09 06:32] LABS: BASOPHIL # 0.1 10^3/ul (0.0-0.1); BASOPHILS % 1.1 % (0.0-2.0); EOSINOPHILS # 0.3 10^3/ul (0.0-0.5); EOSINOPHILS % 4.9 % (0.0-7.0); HEMATOCRIT 32.6 % (42.0-52.0); HEMOGLOBIN 10.8 g/dl (14.0-18.0); LYMPHOCYTES % 31.2 % (15.0-51.0); MEAN CORPUSCULAR HEMOGLOBIN 27.7 pg (29.0-33.0); MEAN CORPUSCULAR HGB CONC 33.1 g/dl (32.0-37.0); MEAN CORPUSCULAR VOLUME 83.6 fl (82.0-101.0); MEAN PLATELET VOLUME 10.7 fl (7.4-10.4); MONOCYTE # 0.7 10^3/ul (0.3-0.9); MONOCYTES % 11.2 % (0.0-11.0); NEUTROPHIL # 3.4 10^3/ul (1.6-7.5); NEUTROPHILS % 51.3 % (39.0-77.0); PLATELET COUNT 181 10^3/UL (140-415); RED CELL DISTRIBUTION WIDTH 14.9 % (11.5-14.5)
[2018-04-09 07:17] LABS: ANION GAP 6 (5-13); CARBON DIOXIDE 25 mmol/L (21-31); CHLORIDE 107 mmol/L (97-110); Estimated GFR > 60 mL/min (>60); POTASSIUM 4.2 mmol/L (3.5-5.1); SODIUM 138 mmol/L (135-144)
[2018-04-09 07:34] LABS: ALANINE AMINOTRANSFERASE 20 IU/L (13-69); ALBUMIN 3.7 g/dl (3.3-4.9); ALBUMIN/GLOBULIN RATIO 1.37; ALKALINE PHOSPHATASE 65 IU/L (42-121); ASPARTATE AMINO TRANSFERASE 17 IU/L (15-46); BILIRUBIN,INDIRECT 0.6 mg/dl (0-1.1); BILIRUBIN,TOTAL 0.6 mg/dl (0.2-1.3); BLOOD UREA NITROGEN 19 mg/dl (7-20); CALCIUM 9.1 mg/dl (8.4-10.2); CHOL/HDL RATIO 4.4 RATIO; CHOLESTEROL 138 mg/dl (100-200); CREATININE 1.12 mg/dl (0.61-1.24); GLUCOSE 110 mg/dl (70-220); HDL CHOLESTEROL 31 mg/dl (28-71); LDL CHOLESTEROL,CALCULATED 77 mg/dl; MAGNESIUM 2.1 mg/dl (1.7-2.5); TOTAL PROTEIN 6.4 g/dl (6.1-8.1); TRIGLYCERIDES 148 mg/dl (0-149)
[2018-04-09] MEDS: INSULIN ASPART [NOVOLOG] 3 ML PEN SC ×8 (07:35→20:54)
[2018-04-09] MEDS: ASPIRIN 81 MG TAB PO (08:24)
[2018-04-09] MEDS: MULTIVITAMINS THERAPEUTIC TAB PO (09:00)
[2018-04-09] MEDS: ENOXAPARIN 40 MG/0.4 ML SYG SC (09:46)
[2018-04-09] MEDS: INSULIN GLARGINE [LANTus] (100 UNITS/ML) SYG SC (09:46)
[2018-04-09] MEDS: VANCOMYCIN 1 GM 250 ML IVPB ×2 (09:59→20:50)
[2018-04-09] MEDS: ATORVASTATIN 40 MG TAB PO (20:54)
[2018-04-10] MEDS: ACCU-CHEK XX (02:00)
[2018-04-10] MEDS: CALCIUM CARBONATE 500 MG CHEW TAB PO (04:14)
[2018-04-10] MEDS: CIPROFLOXACIN 500 MG TAB PO ×2 (05:20→17:30)
[2018-04-10] MEDS: INSULIN ASPART [NOVOLOG] 3 ML PEN SC ×7 (08:00→20:40)
[2018-04-10 08:28] LABS: ADD MAN DIFF? NO; BASOPHIL # 0.1 10^3/ul (0.0-0.1); BASOPHILS % 0.9 % (0.0-2.0); EOSINOPHILS # 0.3 10^3/ul (0.0-0.5); EOSINOPHILS % 5.3 % (0.0-7.0); HEMATOCRIT 33.4 % (42.0-52.0); LYMPHOCYTES # 1.6 10^3/ul (0.8-2.9); LYMPHOCYTES % 26.8 % (15.0-51.0); MEAN CORPUSCULAR HEMOGLOBIN 27.4 pg (29.0-33.0); MEAN CORPUSCULAR HGB CONC 32.9 g/dl (32.0-37.0); MEAN CORPUSCULAR VOLUME 83.1 fl (82.0-101.0); MEAN PLATELET VOLUME 9.7 fl (7.4-10.4); MONOCYTE # 0.7 10^3/ul (0.3-0.9); MONOCYTES % 12.1 % (0.0-11.0); NEUTROPHIL # 3.2 10^3/ul (1.6-7.5); NEUTROPHILS % 54.6 % (39.0-77.0); PLATELET COUNT 218 10^3/UL (140-415); RED BLOOD COUNT 4.02 10^6/ul (4.70-6.10); RED CELL DISTRIBUTION WIDTH 14.6 % (11.5-14.5)
[2018-04-10 08:28] LABS: WHITE BLOOD COUNT 5.9 10^3/ul (4.8-10.8)
[2018-04-10] MEDS: VANCOMYCIN 1 GM 250 ML IVPB (09:00)
[2018-04-10] MEDS: ASPIRIN 81 MG TAB PO (09:00)
[2018-04-10] MEDS: MULTIVITAMINS THERAPEUTIC TAB PO (09:00)
[2018-04-10] MEDS: HYDROCODONE/APAP (5/325) TAB PO (09:09)
[2018-04-10] MEDS: INSULIN GLARGINE [LANTus] (100 UNITS/ML) SYG SC (09:12)
[2018-04-10] MEDS: ENOXAPARIN 40 MG/0.4 ML SYG SC (09:13)
[2018-04-10 09:26] LABS: ANION GAP 8 (5-13); BLOOD UREA NITROGEN 21 mg/dl (7-20); CALCIUM 9.2 mg/dl (8.4-10.2); CARBON DIOXIDE 26 mmol/L (21-31); CHLORIDE 105 mmol/L (97-110); CREATININE 1.23 mg/dl (0.61-1.24); Estimated GFR > 60 mL/min (>60); GLUCOSE 109 mg/dl (70-220); MAGNESIUM 1.9 mg/dl (1.7-2.5); PHOSPHORUS 4.1 mg/dl (2.5-4.9); POTASSIUM 4.4 mmol/L (3.5-5.1); SODIUM 139 mmol/L (135-144)
[2018-04-10 09:30] LABS: VANCOMYCIN,TROUGH 23.3 ug/ml (10.0-20.0)
[2018-04-10] MEDS: VANCOMYCIN 1.25 GM in SOD CHLORIDE 0.9% 250 ML IVPB (20:37)
[2018-04-10] MEDS: ATORVASTATIN 40 MG TAB PO (20:40)
[2018-04-11] MEDS: ACCU-CHEK XX (02:00)
[2018-04-11] MEDS: CIPROFLOXACIN 500 MG TAB PO ×2 (06:30→17:46)
[2018-04-11] MEDS: CALCIUM CARBONATE 500 MG CHEW TAB PO (06:32)
[2018-04-11] MEDS: INSULIN ASPART [NOVOLOG] 3 ML PEN SC ×6 (08:00→21:00)
[2018-04-11] MEDS: ENOXAPARIN 40 MG/0.4 ML SYG SC (08:32)
[2018-04-11] MEDS: ASPIRIN 81 MG TAB PO (08:42)
[2018-04-11] MEDS: MULTIVITAMINS THERAPEUTIC TAB PO (08:42)
[2018-04-11] MEDS: INSULIN GLARGINE [LANTus] (100 UNITS/ML) SYG SC (09:30)
[2018-04-11] MEDS: HYDROCODONE/APAP (5/325) TAB PO (09:50)
[2018-04-11] MEDS: SODIUM HYPOCHLORITE (1/40) 1 APPLIC BTL IRR (10:00)
[2018-04-11] MEDS: VANCOMYCIN 1.25 GM in SOD CHLORIDE 0.9% 250 ML IVPB (21:18)
[2018-04-11] MEDS: ATORVASTATIN 40 MG TAB PO ×2 (21:18→21:20)
[2018-04-12] MEDS: ACCU-CHEK XX (02:00)
[2018-04-12] MEDS: CALCIUM CARBONATE 500 MG CHEW TAB PO (04:09)
[2018-04-12] MEDS: CIPROFLOXACIN 500 MG TAB PO ×2 (05:31→17:16)
[2018-04-12 06:27] LABS: ADD MAN DIFF? NO
[2018-04-12 06:31] LABS: BASOPHIL # 0.1 10^3/ul (0.0-0.1); EOSINOPHILS # 0.4 10^3/ul (0.0-0.5); EOSINOPHILS % 5.5 % (0.0-7.0); HEMATOCRIT 37.4 % (42.0-52.0); HEMOGLOBIN 12.3 g/dl (14.0-18.0); LYMPHOCYTES # 1.9 10^3/ul (0.8-2.9); LYMPHOCYTES % 26.1 % (15.0-51.0); MEAN CORPUSCULAR HEMOGLOBIN 27.6 pg (29.0-33.0); MEAN CORPUSCULAR HGB CONC 32.9 g/dl (32.0-37.0); MEAN PLATELET VOLUME 10.2 fl (7.4-10.4); MONOCYTE # 0.8 10^3/ul (0.3-0.9); MONOCYTES % 11.4 % (0.0-11.0); NEUTROPHILS % 55.7 % (39.0-77.0); PLATELET COUNT 238 10^3/UL (140-415); RED BLOOD COUNT 4.45 10^6/ul (4.70-6.10); RED CELL DISTRIBUTION WIDTH 14.7 % (11.5-14.5)
[2018-04-12 06:31] LABS: WHITE BLOOD COUNT 7.1 10^3/ul (4.8-10.8)
[2018-04-12 07:13] LABS: ANION GAP 11 (5-13); BLOOD UREA NITROGEN 28 mg/dl (7-20); CALCIUM 9.3 mg/dl (8.4-10.2); CARBON DIOXIDE 25 mmol/L (21-31); CHLORIDE 102 mmol/L (97-110); CREATININE 1.41 mg/dl (0.61-1.24); Estimated GFR 53 mL/min (>60); GLUCOSE 130 mg/dl (70-220); MAGNESIUM 1.8 mg/dl (1.7-2.5); PHOSPHORUS 4.4 mg/dl (2.5-4.9); POTASSIUM 4.5 mmol/L (3.5-5.1); SODIUM 138 mmol/L (135-144)
[2018-04-12] MEDS: INSULIN ASPART [NOVOLOG] 3 ML PEN SC ×7 (08:00→21:00)
[2018-04-12] MEDS: INSULIN GLARGINE [LANTus] (100 UNITS/ML) SYG SC (08:01)
[2018-04-12] MEDS: ENOXAPARIN 40 MG/0.4 ML SYG SC (08:01)
[2018-04-12] MEDS: HYDROCODONE/APAP (5/325) TAB PO (08:02)
[2018-04-12] MEDS: ASPIRIN 81 MG TAB PO (08:03)
[2018-04-12] MEDS: SODIUM HYPOCHLORITE (1/40) 1 APPLIC BTL IRR (08:03)
[2018-04-12] MEDS: MULTIVITAMINS THERAPEUTIC TAB PO (08:03)
[2018-04-12] MEDS: VANCOMYCIN 1.25 GM in SOD CHLORIDE 0.9% 250 ML IVPB (21:09)
[2018-04-13] MEDS: ACCU-CHEK XX (02:00)
[2018-04-13] MEDS: CALCIUM CARBONATE 500 MG CHEW TAB PO ×2 (03:37→22:30)
[2018-04-13] MEDS: CIPROFLOXACIN 500 MG TAB PO ×2 (05:40→17:07)
[2018-04-13] MEDS: INSULIN ASPART [NOVOLOG] 3 ML PEN SC ×7 (07:51→21:00)
[2018-04-13] MEDS: INSULIN GLARGINE [LANTus] (100 UNITS/ML) SYG SC (07:52)
[2018-04-13] MEDS: ASPIRIN 81 MG TAB PO (08:26)
[2018-04-13] MEDS: ENOXAPARIN 40 MG/0.4 ML SYG SC (08:26)
[2018-04-13] MEDS: SODIUM HYPOCHLORITE (1/40) 1 APPLIC BTL IRR (08:27)
[2018-04-13] MEDS: MULTIVITAMINS THERAPEUTIC TAB PO (08:27)
[2018-04-13] MEDS: ATORVASTATIN 40 MG TAB PO (21:00)
[2018-04-13 21:02] LABS: VANCOMYCIN,TROUGH 9.4 ug/ml (10.0-20.0)
[2018-04-13] MEDS: VANCOMYCIN 1.25 GM in SOD CHLORIDE 0.9% 250 ML IVPB (21:37)
[2018-04-14] MEDS: ACCU-CHEK XX (02:00)
[2018-04-14] MEDS: CIPROFLOXACIN 500 MG TAB PO ×2 (06:14→17:30)
[2018-04-14 06:59] LABS: ADD MAN DIFF? NO
[2018-04-14 07:07] LABS: WHITE BLOOD COUNT 7.5 10^3/ul (4.8-10.8)
[2018-04-14 07:07] LABS: BASOPHIL # 0.1 10^3/ul (0.0-0.1); BASOPHILS % 0.7 % (0.0-2.0); EOSINOPHILS # 0.4 10^3/ul (0.0-0.5); EOSINOPHILS % 4.8 % (0.0-7.0); HEMATOCRIT 37.8 % (42.0-52.0); HEMOGLOBIN 12.4 g/dl (14.0-18.0); LYMPHOCYTES # 1.9 10^3/ul (0.8-2.9); MEAN CORPUSCULAR HEMOGLOBIN 27.5 pg (29.0-33.0); MEAN CORPUSCULAR HGB CONC 32.8 g/dl (32.0-37.0); MEAN CORPUSCULAR VOLUME 83.8 fl (82.0-101.0); MEAN PLATELET VOLUME 10.6 fl (7.4-10.4); NEUTROPHIL # 4.1 10^3/ul (1.6-7.5); NEUTROPHILS % 55.2 % (39.0-77.0); PLATELET COUNT 205 10^3/UL (140-415); RED BLOOD COUNT 4.51 10^6/ul (4.70-6.10); RED CELL DISTRIBUTION WIDTH 14.6 % (11.5-14.5)
[2018-04-14 07:33] LABS: ANION GAP 11 (5-13); BLOOD UREA NITROGEN 30 mg/dl (7-20); CALCIUM 9.2 mg/dl (8.4-10.2); CARBON DIOXIDE 25 mmol/L (21-31); CHLORIDE 103 mmol/L (97-110); CREATININE 1.31 mg/dl (0.61-1.24); Estimated GFR 58 mL/min (>60); GLUCOSE 134 mg/dl (70-220); MAGNESIUM 1.8 mg/dl (1.7-2.5); POTASSIUM 4.3 mmol/L (3.5-5.1); SODIUM 139 mmol/L (135-144)
[2018-04-14] MEDS: HYDROCODONE/APAP (5/325) TAB PO (07:56)
[2018-04-14] MEDS: INSULIN ASPART [NOVOLOG] 3 ML PEN SC ×7 (08:00→20:51)
[2018-04-14] MEDS: ASPIRIN 81 MG TAB PO (08:01)
[2018-04-14] MEDS: INSULIN GLARGINE [LANTus] (100 UNITS/ML) SYG SC (08:01)
[2018-04-14] MEDS: MULTIVITAMINS THERAPEUTIC TAB PO (08:01)
[2018-04-14] MEDS: ENOXAPARIN 40 MG/0.4 ML SYG SC (08:01)
[2018-04-14] MEDS: SODIUM HYPOCHLORITE (1/40) 1 APPLIC BTL IRR (08:02)
[2018-04-14] MEDS: VANCOMYCIN 1.5 GM in SOD CHLORIDE 0.9% 250 ML IVPB (14:36)
[2018-04-14] MEDS: SOD CHLORIDE 0.9% 1,000 ML IV ×2 (16:00→17:56)
[2018-04-14] MEDS: ATORVASTATIN 40 MG TAB PO (20:51)
[2018-04-14] MEDS: CALCIUM CARBONATE 500 MG CHEW TAB PO (21:34)
[2018-04-15] MEDS: ACCU-CHEK XX (01:04)
[2018-04-15] MEDS: SOD CHLORIDE 0.9% 1,000 ML IV (05:55)
[2018-04-15] MEDS: CIPROFLOXACIN 500 MG TAB PO (05:55)
[2018-04-15] MEDS ORDERED: HEPARIN 5,000 UNIT/0.5 ML VIAL (08:03)
[2018-04-15] MEDS: HYDROCODONE/APAP (5/325) TAB PO (08:04)
[2018-04-15] MEDS: MULTIVITAMINS THERAPEUTIC TAB PO (08:05)
[2018-04-15] MEDS: SODIUM HYPOCHLORITE (1/40) 1 APPLIC BTL IRR (08:06)
[2018-04-15] MEDS: INSULIN GLARGINE [LANTus] (100 UNITS/ML) SYG SC (08:07)
[2018-04-15] MEDS: HEPARIN 5,000 UNIT/1 ML VIAL SC (08:07)
[2018-04-15] MEDS: INSULIN ASPART [NOVOLOG] 3 ML PEN SC ×4 (08:08→12:03)
[2018-04-15] MEDS: ASPIRIN 81 MG TAB PO (08:19)
== END 2018-04-15 13:10 | disposition home health service (06) | DRG 638 ==
LOC: PP2 17:30
DX: E11.69 Type 2 diabetes mellitus with other specified complication (principal); M86.8X7 Other osteomyelitis, ankle and foot; E11.621 Type 2 diabetes mellitus with foot ulcer; L97.519 Non-pressure chronic ulcer of other part of right foot with unspecified severity; E78.5 Hyperlipidemia, unspecified; E11.42 Type 2 diabetes mellitus with diabetic polyneuropathy; R51 Headache; R60.9 Edema, unspecified; Z79.4 Long term (current) use of insulin
CPT/HCPCS: 73630; 80048; 80053; 80061; 80202; 82962; 83036; 83735; 84100; 85025; 87081

== ENCOUNTER 2018-07-22 17:19 | Emergency (ER) | payer SELFPAY, BC | END 2018-07-22 18:40 | disposition left against medical advice (07) | LOC: E/R 17:19 | DX: Z53.21 Procedure and treatment not carried out due to patient leaving prior to being seen by health care provider (principal) ==

== ENCOUNTER 2018-07-29 14:41 | Inpatient (IN) | payer BC ==
[2018-07-29] MEDS ORDERED: VANCOMYCIN IV PER PHARMACY XX (17:30)
[2018-07-29] MEDS: INSULIN ASPART [NOVOLOG] 3 ML PEN SC ×3 (19:27→21:40)
[2018-07-29] MEDS: PIPER-TAZO 3.375 GM IV (PMX) 100 ML IVPB (19:42)
[2018-07-29] MEDS: ATORVASTATIN 40 MG TAB PO (21:00)
[2018-07-29] MEDS: INSULIN GLARGINE [LANTus] (100 UNITS/ML) SYG SC ×2 (21:05→21:40)
[2018-07-29] MEDS: MULTIVITAMINS THERAPEUTIC TAB PO ×2 (22:30→22:35)
[2018-07-29] MEDS: CALCIUM CARBONATE 500 MG CHEW TAB PO (22:35)
[2018-07-30] MEDS: VANCOMYCIN HCL 2 GM in SOD CHLORIDE 0.9% 500 ML IVPB (00:21)
[2018-07-30] MEDS: PIPER-TAZO 3.375 GM IV (PMX) 100 ML IVPB ×3 (02:13→18:11)
[2018-07-30] MEDS: INSULIN ASPART [NOVOLOG] 3 ML PEN SC ×8 (02:36→20:34)
[2018-07-30 06:01] LABS: ADD MAN DIFF? NO
[2018-07-30 06:07] LABS: WHITE BLOOD COUNT 7.7 10^3/ul (4.8-10.8)
[2018-07-30 06:07] LABS: BASOPHIL # 0.1 10^3/ul (0.0-0.1); BASOPHILS % 0.7 % (0.0-2.0); EOSINOPHILS # 0.4 10^3/ul (0.0-0.5); EOSINOPHILS % 4.6 % (0.0-7.0); HEMATOCRIT 33.5 % (42.0-52.0); HEMOGLOBIN 11.1 g/dl (14.0-18.0); LYMPHOCYTES # 1.3 10^3/ul (0.8-2.9); LYMPHOCYTES % 17.2 % (15.0-51.0); MEAN CORPUSCULAR HEMOGLOBIN 27.9 pg (29.0-33.0); MEAN CORPUSCULAR HGB CONC 33.1 g/dl (32.0-37.0); MEAN CORPUSCULAR VOLUME 84.2 fl (82.0-101.0); MEAN PLATELET VOLUME 10.3 fl (7.4-10.4); MONOCYTE # 0.9 10^3/ul (0.3-0.9); MONOCYTES % 11.7 % (0.0-11.0); NEUTROPHILS % 65.4 % (39.0-77.0); PLATELET COUNT 182 10^3/UL (140-415); RED BLOOD COUNT 3.98 10^6/ul (4.70-6.10); RED CELL DISTRIBUTION WIDTH 14.2 % (11.5-14.5)
[2018-07-30 06:22] LABS: ALANINE AMINOTRANSFERASE 13 IU/L (13-69); ALBUMIN 3.2 g/dl (3.3-4.9); ALKALINE PHOSPHATASE 78 IU/L (42-121); ANION GAP 13 (5-13); ASPARTATE AMINO TRANSFERASE 16 IU/L (15-46); BILIRUBIN,INDIRECT 0.3 mg/dl (0-1.1); BILIRUBIN,TOTAL 0.3 mg/dl (0.2-1.3); BLOOD UREA NITROGEN 19 mg/dl (7-20); CALCIUM 8.3 mg/dl (8.4-10.2); CARBON DIOXIDE 21 mmol/L (21-31); CHLORIDE 108 mmol/L (97-110); CREATININE 1.06 mg/dl (0.61-1.24); Estimated GFR > 60 mL/min (>60); GLUCOSE 247 mg/dl (70-220); POTASSIUM 3.8 mmol/L (3.5-5.1); SODIUM 142 mmol/L (135-144); TOTAL PROTEIN 6.1 g/dl (6.1-8.1)
[2018-07-30 06:26] LABS: HEMOGLOBIN A1C 8.8 % (0-5.9)
[2018-07-30] MEDS: ASPIRIN 81 MG TAB PO (08:05)
[2018-07-30] MEDS: ENOXAPARIN 30 MG/0.3 ML SYG SC (08:08)
[2018-07-30] MEDS: MULTIVITAMINS THERAPEUTIC TAB PO (09:00)
[2018-07-30] MEDS: OXYCODONE/ACETAMINOPHEN (5/325) TAB PO (11:11)
[2018-07-30] MEDS ORDERED: INSULIN ASPART [NOVOLOG] 3 ML PEN SC (12:00)
[2018-07-30] MEDS: VANCOMYCIN HCL 1.5 GM in SOD CHLORIDE 0.9% 250 ML IVPB (12:59)
[2018-07-30] MEDS: MOMETASONE 0.24 GM INHALER INH ×2 (14:14→20:25)
[2018-07-30] MEDS: CARBAMIDE PEROXIDE 6.5% 15ML OTIC LEFT EAR ×2 (15:34→20:34)
[2018-07-30] MEDS: SODIUM HYPOCHLORITE (1/40) 1 APPLIC BTL IRR (18:11)
[2018-07-30] MEDS: INSULIN GLARGINE [LANTus] (100 UNITS/ML) SYG SC (20:32)
[2018-07-30] MEDS: PANTOPRAZOLE (EC) 40 MG TAB PO (20:35)
[2018-07-31] MEDS: VANCOMYCIN HCL 1.5 GM in SOD CHLORIDE 0.9% 250 ML IVPB ×2 (00:18→12:40)
[2018-07-31] MEDS: PIPER-TAZO 3.375 GM IV (PMX) 100 ML IVPB ×3 (02:09→17:20)
[2018-07-31] MEDS: CALCIUM CARBONATE 500 MG CHEW TAB PO (05:12)
[2018-07-31] MEDS: OXYCODONE/ACETAMINOPHEN (5/325) TAB PO ×2 (06:48→12:40)
[2018-07-31 06:57] LABS: CREATININE 1.24 mg/dl (0.61-1.24)
[2018-07-31 06:57] LABS: BLOOD UREA NITROGEN 17 mg/dl (7-20)
[2018-07-31] MEDS: MOMETASONE 0.24 GM INHALER INH ×2 (08:30→21:00)
[2018-07-31] MEDS: MULTIVITAMINS THERAPEUTIC TAB PO (08:31)
[2018-07-31] MEDS: SODIUM HYPOCHLORITE (1/40) 1 APPLIC BTL IRR (08:31)
[2018-07-31] MEDS: CARBAMIDE PEROXIDE 6.5% 15ML OTIC LEFT EAR ×2 (08:35→21:00)
[2018-07-31] MEDS: INSULIN ASPART [NOVOLOG] 3 ML PEN SC ×7 (08:37→21:07)
[2018-07-31] MEDS: ENOXAPARIN 30 MG/0.3 ML SYG SC (08:38)
[2018-07-31] MEDS: ALTEPLASE (CATHFLO) 2 MG INJ CATHETER (11:56)
[2018-07-31 12:07] LABS: VANCOMYCIN,TROUGH 18.7 ug/ml (10.0-20.0)
[2018-07-31] MEDS: SILVER SULFADIAZINE 1% 25 GM CR TOP (16:11)
[2018-07-31] MEDS: PANTOPRAZOLE (EC) 40 MG TAB PO (21:00)
[2018-07-31] MEDS: INSULIN GLARGINE [LANTus] (100 UNITS/ML) SYG SC (21:06)
[2018-08-01] MEDS ORDERED: VANCOMYCIN 1 GM 250 ML IVPB
[2018-08-01] MEDS: VANCOMYCIN HCL 1.25 GM in SOD CHLORIDE 0.9% 250 ML IVPB ×2 (00:05→13:24)
[2018-08-01] MEDS: CALCIUM CARBONATE 500 MG CHEW TAB PO ×2 (04:26→23:47)
[2018-08-01] MEDS: PIPER-TAZO 3.375 GM IV (PMX) 100 ML IVPB (04:58)
[2018-08-01] MEDS: INSULIN ASPART [NOVOLOG] 3 ML PEN SC ×7 (08:00→21:00)
[2018-08-01] MEDS: SILVER SULFADIAZINE 1% 25 GM CR TOP (09:00)
[2018-08-01] MEDS: SODIUM HYPOCHLORITE (1/40) 1 APPLIC BTL IRR (09:00)
[2018-08-01] MEDS ORDERED: SILVER SULFADIAZINE 1% 25 GM CR TOP (09:00)
[2018-08-01] MEDS: MOMETASONE 0.24 GM INHALER INH ×2 (09:01→21:00)
[2018-08-01] MEDS: CARBAMIDE PEROXIDE 6.5% 15ML OTIC LEFT EAR ×2 (09:04→21:17)
[2018-08-01] MEDS: MULTIVITAMINS THERAPEUTIC TAB PO (09:10)
[2018-08-01] MEDS: ENOXAPARIN 30 MG/0.3 ML SYG SC (09:10)
[2018-08-01] MEDS: MUPIROCIN 2% 22 GM OINT TOP ×2 (13:24→21:00)
[2018-08-01] MEDS: OXYCODONE/ACETAMINOPHEN (5/325) TAB PO (13:41)
[2018-08-01] MEDS: CIPROFLOXACIN 500 MG TAB PO (17:51)
[2018-08-01] MEDS: PANTOPRAZOLE (EC) 40 MG TAB PO (21:10)
[2018-08-01] MEDS: INSULIN GLARGINE [LANTus] (100 UNITS/ML) SYG SC (21:14)
[2018-08-02] MEDS: VANCOMYCIN HCL 1.25 GM in SOD CHLORIDE 0.9% 250 ML IVPB (00:06)
[2018-08-02] MEDS: OXYCODONE/ACETAMINOPHEN (5/325) TAB PO ×2 (02:59→11:17)
[2018-08-02] MEDS: CIPROFLOXACIN 500 MG TAB PO ×2 (05:46→20:24)
[2018-08-02 06:30] LABS: ADD MAN DIFF? NO
[2018-08-02 06:40] LABS: WHITE BLOOD COUNT 6.4 10^3/ul (4.8-10.8)
[2018-08-02 06:40] LABS: BASOPHIL # 0.1 10^3/ul (0.0-0.1); BASOPHILS % 0.9 % (0.0-2.0); EOSINOPHILS # 0.3 10^3/ul (0.0-0.5); HEMATOCRIT 34.6 % (42.0-52.0); HEMOGLOBIN 11.4 g/dl (14.0-18.0); LYMPHOCYTES # 1.5 10^3/ul (0.8-2.9); LYMPHOCYTES % 22.8 % (15.0-51.0); MEAN CORPUSCULAR HEMOGLOBIN 27.8 pg (29.0-33.0); MEAN CORPUSCULAR HGB CONC 32.9 g/dl (32.0-37.0); MEAN CORPUSCULAR VOLUME 84.4 fl (82.0-101.0); MEAN PLATELET VOLUME 10.5 fl (7.4-10.4); MONOCYTE # 0.7 10^3/ul (0.3-0.9); MONOCYTES % 11.5 % (0.0-11.0); NEUTROPHIL # 3.8 10^3/ul (1.6-7.5); NEUTROPHILS % 59.5 % (39.0-77.0); PLATELET COUNT 221 10^3/UL (140-415); RED CELL DISTRIBUTION WIDTH 14.3 % (11.5-14.5)
[2018-08-02 07:38] LABS: ANION GAP 8 (5-13); BLOOD UREA NITROGEN 21 mg/dl (7-20); CALCIUM 8.8 mg/dl (8.4-10.2); CARBON DIOXIDE 25 mmol/L (21-31); CHLORIDE 106 mmol/L (97-110); CREATININE 1.03 mg/dl (0.61-1.24); Estimated GFR > 60 mL/min (>60); GLUCOSE 127 mg/dl (70-220); POTASSIUM 3.8 mmol/L (3.5-5.1); SODIUM 139 mmol/L (135-144)
[2018-08-02] MEDS: MUPIROCIN 2% 22 GM OINT TOP ×2 (08:30→20:36)
[2018-08-02] MEDS: MULTIVITAMINS THERAPEUTIC TAB PO (08:30)
[2018-08-02] MEDS: CARBAMIDE PEROXIDE 6.5% 15ML OTIC LEFT EAR ×2 (08:31→20:41)
[2018-08-02] MEDS: SODIUM HYPOCHLORITE (1/40) 1 APPLIC BTL IRR (08:32)
[2018-08-02] MEDS: SILVER SULFADIAZINE 1% 25 GM CR TOP (08:32)
[2018-08-02] MEDS: INSULIN ASPART [NOVOLOG] 3 ML PEN SC ×7 (08:40→20:35)
[2018-08-02] MEDS: MOMETASONE 0.24 GM INHALER INH ×2 (08:41→20:35)
[2018-08-02] MEDS: ENOXAPARIN 30 MG/0.3 ML SYG SC (08:41)
[2018-08-02 11:58] LABS: VANCOMYCIN,TROUGH 21.8 ug/ml (10.0-20.0)
[2018-08-02] MEDS: VANCOMYCIN 750 MG (PMX) 250 ML IVPB (20:25)
[2018-08-02] MEDS: PANTOPRAZOLE (EC) 40 MG TAB PO (20:26)
[2018-08-02] MEDS: INSULIN GLARGINE [LANTus] (100 UNITS/ML) SYG SC (20:33)
[2018-08-03] MEDS: CALCIUM CARBONATE 500 MG CHEW TAB PO ×2 (03:47→23:41)
[2018-08-03] MEDS: CIPROFLOXACIN 500 MG TAB PO ×2 (06:52→18:22)
[2018-08-03] MEDS ORDERED: GLUCOSE GEL 15 GRAM TUBE BUCCAL (08:00)
[2018-08-03] MEDS ORDERED: GLUCOSE GEL 15 GRAM TUBE PO ×2 (08:00)
[2018-08-03] MEDS ORDERED: GLUCAGON 1 MG INJ IM (08:00)
[2018-08-03] MEDS: INSULIN ASPART [NOVOLOG] 3 ML PEN SC ×7 (08:00→22:00)
[2018-08-03] MEDS ORDERED: DEXTROSE 50% 50 ML SYRINGE IV ×2 (08:00)
[2018-08-03] MEDS: VANCOMYCIN 750 MG (PMX) 250 ML IVPB ×2 (09:00→21:56)
[2018-08-03] MEDS: MULTIVITAMINS THERAPEUTIC TAB PO (09:01)
[2018-08-03] MEDS: COLLAGENASE 5 GM (UD JAR) TOP (09:01)
[2018-08-03] MEDS: MOMETASONE 0.24 GM INHALER INH ×2 (09:02→22:00)
[2018-08-03] MEDS: MUPIROCIN 2% 22 GM OINT TOP ×2 (09:52→22:00)
[2018-08-03] MEDS: ENOXAPARIN 30 MG/0.3 ML SYG SC (09:52)
[2018-08-03] MEDS: CARBAMIDE PEROXIDE 6.5% 15ML OTIC LEFT EAR ×2 (09:52→22:00)
[2018-08-03] MEDS: SODIUM HYPOCHLORITE (1/40) 1 APPLIC BTL IRR (09:53)
[2018-08-03] MEDS: SILVER SULFADIAZINE 1% 25 GM CR TOP (09:53)
[2018-08-03] MEDS: PANTOPRAZOLE (EC) 40 MG TAB PO (22:00)
[2018-08-03] MEDS: INSULIN GLARGINE [LANTus] (100 UNITS/ML) SYG SC (22:02)
[2018-08-04] MEDS: CIPROFLOXACIN 500 MG TAB PO ×2 (05:21→18:11)
[2018-08-04 05:51] LABS: BLOOD UREA NITROGEN 27 mg/dl (7-20)
[2018-08-04 05:51] LABS: CREATININE 1.28 mg/dl (0.61-1.24)
[2018-08-04] MEDS: DEXTROSE 5%-0.45% NACL 1,000 ML IV ×2 (06:57→20:20)
[2018-08-04] MEDS: CARBAMIDE PEROXIDE 6.5% 15ML OTIC LEFT EAR ×3 (06:58→21:00)
[2018-08-04] MEDS ORDERED: METOCLOPRAMIDE 10 MG INJ (07:00)
[2018-08-04] MEDS: INSULIN ASPART [NOVOLOG] 3 ML PEN SC ×7 (08:10→21:00)
[2018-08-04] MEDS: VANCOMYCIN 750 MG (PMX) 250 ML IVPB (08:15)
[2018-08-04] MEDS: SODIUM HYPOCHLORITE (1/40) 1 APPLIC BTL IRR (08:48)
[2018-08-04] MEDS: MUPIROCIN 2% 22 GM OINT TOP ×2 (08:48→21:00)
[2018-08-04] MEDS: MULTIVITAMINS THERAPEUTIC TAB PO (08:48)
[2018-08-04] MEDS: MOMETASONE 0.24 GM INHALER INH ×2 (08:48→21:00)
[2018-08-04] MEDS: ENOXAPARIN 30 MG/0.3 ML SYG SC (08:48)
[2018-08-04] MEDS: COLLAGENASE 5 GM (UD JAR) TOP (08:49)
[2018-08-04] MEDS: SILVER SULFADIAZINE 1% 25 GM CR TOP (08:49)
[2018-08-04] MEDS ORDERED: FENTAnyl 50 MCG/ML VIAL (09:11)
[2018-08-04] MEDS ORDERED: LIDOCAINE 2% (SDV) 5 ML INJ (09:12)
[2018-08-04] MEDS ORDERED: ROPIVACAINE 0.5 % 30 ML VIAL (09:12)
[2018-08-04] MEDS ORDERED: MIDAZOLAM 1 MG/ML 2 ML INJ (09:12)
[2018-08-04] MEDS ORDERED: PROPOFOL 20 ML (09:12)
[2018-08-04] MEDS ORDERED: ONDANSETRON 4 MG INJ (09:16)
[2018-08-04] MEDS ORDERED: HYDROmorphONE 1 MG/5 ML IV SYRINGE IV ×3 (09:43→10:30)
[2018-08-04] MEDS ORDERED: POLYMYXIN/BACITRACIN 1L IRRIG ×2 (09:47→10:49)
[2018-08-04] MEDS: HYDROmorphONE 1 MG/5 ML IV SYRINGE IV ×3 (10:01→12:44)
[2018-08-04] MEDS ORDERED: LEVALBUTEROL (NEB) 1.25 MG/0.5 ML AMP HHN (10:30)
[2018-08-04] MEDS ORDERED: HALOPERIDOL 5 MG INJ IV (10:30)
[2018-08-04] MEDS ORDERED: hydrALAzine 20 MG INJ IV (10:30)
[2018-08-04] MEDS ORDERED: ONDANSETRON 4 MG INJ IV (10:30)
[2018-08-04] MEDS ORDERED: LABETALOL HCL 20MG INJ IV (10:30)
[2018-08-04] MEDS ORDERED: IPRATROPIUM (NEB) 0.5 MG/2.5 ML AMP HHN (10:30)
[2018-08-04] MEDS ORDERED: FENTAnyl 50 MCG/ML VIAL IV ×2 (10:30)
[2018-08-04] MEDS ORDERED: BACITRACIN 50000 UNITS INJ (10:49)
[2018-08-04] MEDS: POLYMYXIN/BACITRACIN 1L IRRIG IRR (11:02)
[2018-08-04] MEDS ORDERED: VANCOMYCIN 1 GM INJ (11:27)
[2018-08-04] MEDS: VANCOMYCIN 1 GM INJ IVPB (11:29)
[2018-08-04] MEDS: DAPTOMYCIN IVPB (13:21)
[2018-08-04] MEDS: SOD CHLORIDE 0.9% IVPB (13:21)
[2018-08-04] MEDS: PANTOPRAZOLE (EC) 40 MG TAB PO (21:00)
[2018-08-04] MEDS: INSULIN GLARGINE [LANTus] (100 UNITS/ML) SYG SC (21:56)
[2018-08-04] MEDS: CALCIUM CARBONATE 500 MG CHEW TAB PO (23:41)
[2018-08-05] MEDS: ACCU-CHEK XX (01:57)
[2018-08-05 06:04] LABS: CREATINE KINASE 54 IU/L (23-200)
[2018-08-05] MEDS: INSULIN ASPART [NOVOLOG] 3 ML PEN SC ×7 (08:00→21:00)
[2018-08-05] MEDS: SILVER SULFADIAZINE 1% 25 GM CR TOP (09:00)
[2018-08-05] MEDS: MOMETASONE 0.24 GM INHALER INH ×2 (09:00→21:00)
[2018-08-05] MEDS: CARBAMIDE PEROXIDE 6.5% 15ML OTIC LEFT EAR ×2 (09:00→21:00)
[2018-08-05] MEDS: SODIUM HYPOCHLORITE (1/40) 1 APPLIC BTL IRR (09:00)
[2018-08-05] MEDS: MULTIVITAMINS THERAPEUTIC TAB PO (09:09)
[2018-08-05] MEDS: CIPROFLOXACIN 500 MG TAB PO ×2 (09:09→18:00)
[2018-08-05] MEDS: COLLAGENASE 5 GM (UD JAR) TOP (09:10)
[2018-08-05] MEDS: MUPIROCIN 2% 22 GM OINT TOP ×2 (09:10→21:57)
[2018-08-05] MEDS: ENOXAPARIN 30 MG/0.3 ML SYG SC (09:15)
[2018-08-05] MEDS: SOD CHLORIDE 0.9% IVPB (12:11)
[2018-08-05] MEDS: DAPTOMYCIN IVPB (12:11)
[2018-08-05] MEDS: PANTOPRAZOLE (EC) 40 MG TAB PO (21:00)
[2018-08-05] MEDS: INSULIN GLARGINE [LANTus] (100 UNITS/ML) SYG SC (21:50)
[2018-08-06] MEDS: CIPROFLOXACIN 500 MG TAB PO ×2 (06:24→17:38)
[2018-08-06] MEDS: MOMETASONE 0.24 GM INHALER INH ×2 (08:18→21:00)
[2018-08-06] MEDS: MULTIVITAMINS THERAPEUTIC TAB PO (08:19)
[2018-08-06] MEDS: SODIUM HYPOCHLORITE (1/40) 1 APPLIC BTL IRR ×2 (08:19→14:11)
[2018-08-06] MEDS: CARBAMIDE PEROXIDE 6.5% 15ML OTIC LEFT EAR ×2 (08:19→21:00)
[2018-08-06] MEDS: SILVER SULFADIAZINE 1% 25 GM CR TOP (08:20)
[2018-08-06] MEDS: MUPIROCIN 2% 22 GM OINT TOP ×2 (08:20→21:00)
[2018-08-06] MEDS: COLLAGENASE 5 GM (UD JAR) TOP (08:20)
[2018-08-06] MEDS: INSULIN ASPART [NOVOLOG] 3 ML PEN SC ×7 (08:22→21:08)
[2018-08-06] MEDS: ENOXAPARIN 30 MG/0.3 ML SYG SC (08:23)
[2018-08-06] MEDS: DAPTOMYCIN IVPB (12:30)
[2018-08-06] MEDS: SOD CHLORIDE 0.9% IVPB (12:30)
[2018-08-06] MEDS: OXYCODONE/ACETAMINOPHEN (5/325) TAB PO (13:08)
[2018-08-06] MEDS: PANTOPRAZOLE (EC) 40 MG TAB PO (21:00)
[2018-08-06] MEDS: INSULIN GLARGINE [LANTus] (100 UNITS/ML) SYG SC (21:08)
[2018-08-07] MEDS: CIPROFLOXACIN 500 MG TAB PO ×2 (05:34→17:38)
[2018-08-07] MEDS: COLLAGENASE 5 GM (UD JAR) TOP (08:32)
[2018-08-07] MEDS: SODIUM HYPOCHLORITE (1/40) 1 APPLIC BTL IRR (08:33)
[2018-08-07] MEDS: MUPIROCIN 2% 22 GM OINT TOP ×2 (08:33→20:53)
[2018-08-07] MEDS: SILVER SULFADIAZINE 1% 25 GM CR TOP (08:34)
[2018-08-07] MEDS: INSULIN ASPART [NOVOLOG] 3 ML PEN SC ×7 (08:36→20:52)
[2018-08-07] MEDS: ENOXAPARIN 30 MG/0.3 ML SYG SC (08:37)
[2018-08-07] MEDS: MOMETASONE 0.24 GM INHALER INH ×2 (09:00→20:53)
[2018-08-07] MEDS: MULTIVITAMINS THERAPEUTIC TAB PO (09:00)
[2018-08-07] MEDS: CARBAMIDE PEROXIDE 6.5% 15ML OTIC LEFT EAR ×2 (09:00→20:54)
[2018-08-07 09:36] LABS: BLOOD UREA NITROGEN 29 mg/dl (7-20)
[2018-08-07 09:36] LABS: CREATININE 1.34 mg/dl (0.61-1.24)
[2018-08-07] MEDS: SOD CHLORIDE 0.9% IVPB (12:23)
[2018-08-07] MEDS: DAPTOMYCIN IVPB (12:23)
[2018-08-07] MEDS: OXYCODONE/ACETAMINOPHEN (5/325) TAB PO (12:24)
[2018-08-07] MEDS: ALBUTEROL HFA 8 GM INHALER INH (12:28)
[2018-08-07] MEDS: PANTOPRAZOLE (EC) 40 MG TAB PO (20:54)
[2018-08-07] MEDS: INSULIN GLARGINE [LANTus] (100 UNITS/ML) SYG SC (21:01)
[2018-08-08] MEDS: CALCIUM CARBONATE 500 MG CHEW TAB PO (02:46)
[2018-08-08] MEDS: CIPROFLOXACIN 500 MG TAB PO ×2 (05:46→18:01)
[2018-08-08] MEDS: MULTIVITAMINS THERAPEUTIC TAB PO (09:00)
[2018-08-08] MEDS: CARBAMIDE PEROXIDE 6.5% 15ML OTIC LEFT EAR ×2 (09:00→20:46)
[2018-08-08] MEDS: MOMETASONE 0.24 GM INHALER INH ×2 (09:00→20:47)
[2018-08-08] MEDS: INSULIN ASPART [NOVOLOG] 3 ML PEN SC ×7 (09:33→20:46)
[2018-08-08] MEDS: ENOXAPARIN 30 MG/0.3 ML SYG SC (09:35)
[2018-08-08] MEDS: ALBUTEROL HFA 8 GM INHALER INH (09:38)
[2018-08-08] MEDS: MUPIROCIN 2% 22 GM OINT TOP ×2 (09:39→20:46)
[2018-08-08] MEDS: SODIUM HYPOCHLORITE (1/40) 1 APPLIC BTL IRR (09:41)
[2018-08-08] MEDS: SILVER SULFADIAZINE 1% 25 GM CR TOP (09:42)
[2018-08-08] MEDS: OXYCODONE/ACETAMINOPHEN (5/325) TAB PO (09:58)
[2018-08-08] MEDS: DAPTOMYCIN IVPB (11:37)
[2018-08-08] MEDS: SOD CHLORIDE 0.9% IVPB (11:37)
[2018-08-08] MEDS: PANTOPRAZOLE (EC) 40 MG TAB PO (20:46)
[2018-08-08] MEDS: INSULIN GLARGINE [LANTus] (100 UNITS/ML) SYG SC (20:52)
[2018-08-09] MEDS: CIPROFLOXACIN 500 MG TAB PO ×2 (05:04→17:47)
[2018-08-09] MEDS: OXYCODONE/ACETAMINOPHEN (5/325) TAB PO (07:38)
[2018-08-09] MEDS: ALTEPLASE (CATHFLO) 2 MG INJ CATHETER (07:39)
[2018-08-09] MEDS: ENOXAPARIN 30 MG/0.3 ML SYG SC (08:20)
[2018-08-09] MEDS: INSULIN ASPART [NOVOLOG] 3 ML PEN SC ×7 (08:21→21:00)
[2018-08-09] MEDS: MULTIVITAMINS THERAPEUTIC TAB PO (08:23)
[2018-08-09] MEDS: MUPIROCIN 2% 22 GM OINT TOP ×2 (08:23→21:00)
[2018-08-09] MEDS: MOMETASONE 0.24 GM INHALER INH ×2 (08:24→21:00)
[2018-08-09] MEDS: SILVER SULFADIAZINE 1% 25 GM CR TOP (08:25)
[2018-08-09] MEDS: SODIUM HYPOCHLORITE (1/40) 1 APPLIC BTL IRR (08:25)
[2018-08-09] MEDS: CARBAMIDE PEROXIDE 6.5% 15ML OTIC LEFT EAR ×2 (08:32→21:00)
[2018-08-09 09:33] LABS: BLOOD UREA NITROGEN 28 mg/dl (7-20)
[2018-08-09 09:33] LABS: CREATINE KINASE 78 IU/L (23-200); CREATININE 1.21 mg/dl (0.61-1.24)
[2018-08-09] MEDS: DAPTOMYCIN IVPB (12:20)
[2018-08-09] MEDS: SOD CHLORIDE 0.9% IVPB (12:20)
[2018-08-09] MEDS: PANTOPRAZOLE (EC) 40 MG TAB PO (21:00)
[2018-08-09] MEDS: INSULIN GLARGINE [LANTus] (100 UNITS/ML) SYG SC (21:17)
[2018-08-10] MEDS: CALCIUM CARBONATE 500 MG CHEW TAB PO (06:13)
[2018-08-10] MEDS: INSULIN ASPART [NOVOLOG] 3 ML PEN SC ×7 (08:00→21:24)
[2018-08-10] MEDS: MOMETASONE 0.24 GM INHALER INH ×2 (08:08→21:00)
[2018-08-10] MEDS: MULTIVITAMINS THERAPEUTIC TAB PO (08:09)
[2018-08-10] MEDS: CIPROFLOXACIN 500 MG TAB PO ×2 (08:09→17:57)
[2018-08-10] MEDS: MUPIROCIN 2% 22 GM OINT TOP ×2 (08:09→21:00)
[2018-08-10] MEDS: ENOXAPARIN 30 MG/0.3 ML SYG SC (08:11)
[2018-08-10] MEDS: SODIUM HYPOCHLORITE (1/40) 1 APPLIC BTL IRR (08:12)
[2018-08-10] MEDS: CARBAMIDE PEROXIDE 6.5% 15ML OTIC LEFT EAR ×2 (08:12→21:00)
[2018-08-10] MEDS: SILVER SULFADIAZINE 1% 25 GM CR TOP (08:13)
[2018-08-10] MEDS: OXYCODONE/ACETAMINOPHEN (5/325) TAB PO (10:21)
[2018-08-10] MEDS: SOD CHLORIDE 0.9% IVPB (11:51)
[2018-08-10] MEDS: DAPTOMYCIN IVPB (11:51)
[2018-08-10] MEDS: PANTOPRAZOLE (EC) 40 MG TAB PO (21:00)
[2018-08-10] MEDS: INSULIN GLARGINE [LANTus] (100 UNITS/ML) SYG SC (21:25)
[2018-08-11] MEDS: CIPROFLOXACIN 500 MG TAB PO ×2 (06:16→17:59)
[2018-08-11] MEDS: OXYCODONE/ACETAMINOPHEN (5/325) TAB PO (08:34)
[2018-08-11] MEDS: MULTIVITAMINS THERAPEUTIC TAB PO (08:34)
[2018-08-11] MEDS: ALBUTEROL HFA 8 GM INHALER INH (08:35)
[2018-08-11] MEDS: MOMETASONE 0.24 GM INHALER INH ×2 (08:35→21:00)
[2018-08-11] MEDS: MUPIROCIN 2% 22 GM OINT TOP ×2 (08:35→21:00)
[2018-08-11] MEDS: CARBAMIDE PEROXIDE 6.5% 15ML OTIC LEFT EAR ×2 (08:36→21:00)
[2018-08-11] MEDS: SODIUM HYPOCHLORITE (1/40) 1 APPLIC BTL IRR ×2 (08:36→22:50)
[2018-08-11] MEDS: INSULIN ASPART [NOVOLOG] 3 ML PEN SC ×7 (08:42→21:00)
[2018-08-11] MEDS: ENOXAPARIN 30 MG/0.3 ML SYG SC (08:43)
[2018-08-11] MEDS: SILVER SULFADIAZINE 1% 25 GM CR TOP ×2 (09:00→22:51)
[2018-08-11] MEDS: SOD CHLORIDE 0.9% IVPB (11:34)
[2018-08-11] MEDS: DAPTOMYCIN IVPB (11:34)
[2018-08-11] MEDS: PANTOPRAZOLE (EC) 40 MG TAB PO (21:00)
[2018-08-11] MEDS: INSULIN GLARGINE [LANTus] (100 UNITS/ML) SYG SC (21:56)
[2018-08-12] MEDS: CALCIUM CARBONATE 500 MG CHEW TAB PO ×2 (05:15→22:18)
[2018-08-12] MEDS: CIPROFLOXACIN 500 MG TAB PO ×2 (06:45→19:00)
[2018-08-12] MEDS: INSULIN ASPART [NOVOLOG] 3 ML PEN SC ×7 (08:00→20:08)
[2018-08-12] MEDS: MULTIVITAMINS THERAPEUTIC TAB PO (08:43)
[2018-08-12] MEDS: ENOXAPARIN 30 MG/0.3 ML SYG SC (08:43)
[2018-08-12] MEDS: SODIUM HYPOCHLORITE (1/40) 1 APPLIC BTL IRR ×2 (08:44→20:29)
[2018-08-12] MEDS: OXYCODONE/ACETAMINOPHEN (5/325) TAB PO (08:44)
[2018-08-12] MEDS: SILVER SULFADIAZINE 1% 25 GM CR TOP ×2 (08:45→20:29)
[2018-08-12] MEDS: MUPIROCIN 2% 22 GM OINT TOP ×2 (09:00→20:30)
[2018-08-12] MEDS: CARBAMIDE PEROXIDE 6.5% 15ML OTIC LEFT EAR ×2 (09:00→20:30)
[2018-08-12] MEDS: MOMETASONE 0.24 GM INHALER INH ×2 (09:00→20:30)
[2018-08-12] MEDS: SOD CHLORIDE 0.9% IVPB (11:49)
[2018-08-12] MEDS: DAPTOMYCIN IVPB (11:49)
[2018-08-12] MEDS: INSULIN GLARGINE [LANTus] (100 UNITS/ML) SYG SC (20:07)
[2018-08-12] MEDS: PANTOPRAZOLE (EC) 40 MG TAB PO (20:30)
[2018-08-13] MEDS: CIPROFLOXACIN 500 MG TAB PO ×2 (05:15→17:51)
[2018-08-13 06:23] LABS: BLOOD UREA NITROGEN 29 mg/dl (7-20)
[2018-08-13 06:23] LABS: CREATININE 1.41 mg/dl (0.61-1.24)
[2018-08-13] MEDS: MUPIROCIN 2% 22 GM OINT TOP ×2 (08:35→19:46)
[2018-08-13] MEDS: CARBAMIDE PEROXIDE 6.5% 15ML OTIC LEFT EAR ×2 (08:35→20:05)
[2018-08-13] MEDS: SODIUM HYPOCHLORITE (1/40) 1 APPLIC BTL IRR (08:36)
[2018-08-13] MEDS: MULTIVITAMINS THERAPEUTIC TAB PO (08:36)
[2018-08-13] MEDS: SILVER SULFADIAZINE 1% 25 GM CR TOP (08:36)
[2018-08-13] MEDS: MOMETASONE 0.24 GM INHALER INH ×2 (08:36→19:47)
[2018-08-13] MEDS: INSULIN ASPART [NOVOLOG] 3 ML PEN SC ×7 (08:40→20:05)
[2018-08-13] MEDS: ENOXAPARIN 30 MG/0.3 ML SYG SC (08:41)
[2018-08-13] MEDS: DAPTOMYCIN IVPB (10:01)
[2018-08-13] MEDS: OXYCODONE/ACETAMINOPHEN (5/325) TAB PO ×2 (10:01→19:45)
[2018-08-13] MEDS: SOD CHLORIDE 0.9% IVPB (10:01)
[2018-08-13] MEDS: PANTOPRAZOLE (EC) 40 MG TAB PO (19:45)
[2018-08-13] MEDS: CALCIUM CARBONATE 500 MG CHEW TAB PO (20:05)
[2018-08-13] MEDS: INSULIN GLARGINE [LANTus] (100 UNITS/ML) SYG SC (20:07)
== END 2018-08-13 23:25 | DRG 623 ==
LOC: 2NE 14:41
PROVIDERS: Internal Medicine
PROC: 0JBQ0ZZ Excision of Right Foot Subcutaneous Tissue and Fascia, Open Approach (ICD-10-PCS; principal; 2018-08-04 09:30)
PROC: 0HRMXK3 Replacement of Right Foot Skin with Nonautologous Tissue Substitute, Full Thickness, External Approach (ICD-10-PCS; 2018-08-04 09:30)
PROC: 0YHM0YZ Insertion of Other Device into Right Foot, Open Approach (ICD-10-PCS; 2018-08-04 09:30)
PROC: 0JBR0ZZ Excision of Left Foot Subcutaneous Tissue and Fascia, Open Approach (ICD-10-PCS; 2018-08-04 10:37)
PROC: 0JBQ0ZZ Excision of Right Foot Subcutaneous Tissue and Fascia, Open Approach (ICD-10-PCS; 2018-08-04 10:37)
DX: E11.69 Type 2 diabetes mellitus with other specified complication (principal); M86.8X7 Other osteomyelitis, ankle and foot; L03.115 Cellulitis of right lower limb; E11.51 Type 2 diabetes mellitus with diabetic peripheral angiopathy without gangrene; E11.42 Type 2 diabetes mellitus with diabetic polyneuropathy; E11.621 Type 2 diabetes mellitus with foot ulcer; L97.529 Non-pressure chronic ulcer of other part of left foot with unspecified severity; L97.519 Non-pressure chronic ulcer of other part of right foot with unspecified severity; B95.62 Methicillin resistant Staphylococcus aureus infection as the cause of diseases classified elsewhere; B95.2 Enterococcus as the cause of diseases classified elsewhere; E66.9 Obesity, unspecified; Z68.34 Body mass index [BMI] 34.0-34.9, adult; Z89.431 Acquired absence of right foot; Z79.4 Long term (current) use of insulin; Z79.82 Long term (current) use of aspirin
CPT/HCPCS: 73630; 73630-LT; 73718; 80048; 80053; 80202; 82550; 82565; 82962; 83036; 84520; 85025; 87070; 87075; 87081; 87102; 93005; 93922; 97116; 97161; 97167; 97530; 97535

== ENCOUNTER 2018-09-17 16:39 | Inpatient (IN) | payer BC ==
[2018-09-17 17:43] LABS: ADD MAN DIFF? NO
[2018-09-17 17:46] LABS: WHITE BLOOD COUNT 9.9 10^3/ul (4.8-10.8)
[2018-09-17 17:46] LABS: BASOPHIL # 0.1 10^3/ul (0.0-0.1); BASOPHILS % 0.6 % (0.0-2.0); EOSINOPHILS # 0.3 10^3/ul (0.0-0.5); EOSINOPHILS % 3.1 % (0.0-7.0); HEMATOCRIT 37.4 % (42.0-52.0); HEMOGLOBIN 12.6 g/dl (14.0-18.0); LYMPHOCYTES # 2.2 10^3/ul (0.8-2.9); LYMPHOCYTES % 22.2 % (15.0-51.0); MEAN CORPUSCULAR HEMOGLOBIN 28.3 pg (29.0-33.0); MEAN CORPUSCULAR HGB CONC 33.7 g/dl (32.0-37.0); MEAN CORPUSCULAR VOLUME 83.9 fl (82.0-101.0); MEAN PLATELET VOLUME 9.7 fl (7.4-10.4); MONOCYTE # 1.2 10^3/ul (0.3-0.9); MONOCYTES % 11.9 % (0.0-11.0); NEUTROPHIL # 6.1 10^3/ul (1.6-7.5); NEUTROPHILS % 61.8 % (39.0-77.0); PLATELET COUNT 234 10^3/UL (140-415); RED BLOOD COUNT 4.46 10^6/ul (4.70-6.10); RED CELL DISTRIBUTION WIDTH 13.5 % (11.5-14.5)
[2018-09-17 18:06] LABS: INR 0.89; PARTIAL THROMBOPLASTIN TIME 31.6 Sec (23.0-35.0); PROTIME 12.1 Sec (11.9-14.9); PT RATIO 0.9
[2018-09-17 18:12] LABS: ALANINE AMINOTRANSFERASE 13 IU/L (13-69); ALBUMIN 4.1 g/dl (3.3-4.9); ALKALINE PHOSPHATASE 96 IU/L (42-121); ANION GAP 8 (5-13); ASPARTATE AMINO TRANSFERASE 16 IU/L (15-46); BILIRUBIN,INDIRECT 0.3 mg/dl (0-1.1); BILIRUBIN,TOTAL 0.3 mg/dl (0.2-1.3); BLOOD UREA NITROGEN 26 mg/dl (7-20); C-REACTIVE PROTEIN 3.7 mg/dl (0.0-0.9); CALCIUM 9.8 mg/dl (8.4-10.2); CARBON DIOXIDE 25 mmol/L (21-31); CHLORIDE 106 mmol/L (97-110); CREATININE 1.34 mg/dl (0.61-1.24); Estimated GFR 56 mL/min (>60); GLUCOSE 116 mg/dl (70-220); POTASSIUM 4.8 mmol/L (3.5-5.1); SODIUM 139 mmol/L (135-144); TOTAL PROTEIN 7.5 g/dl (6.1-8.1)
[2018-09-17 18:20] LABS: TROPONIN-I < 0.012 ng/ml (0.000-0.120)
[2018-09-17] MEDS: ALTEPLASE (CATHFLO) 2 MG INJ CATHETER (18:26)
[2018-09-17 18:31] LABS: ADD UMIC NO; UR ASCORBIC ACID 40 mg/dL (NEGATIVE); UR BILIRUBIN (Dip) NEGATIVE (NEGATIVE); UR BLOOD (Dip) NEGATIVE (NEGATIVE); UR CLARITY CLEAR (CLEAR); UR COLOR YELLOW (YELLOW); UR GLUCOSE (Dip) NEGATIVE (NEGATIVE); UR KETONES (Dip) TRACE mg/dL (NEGATIVE); UR LEUKOCYTE ESTERASE (Dip) NEGATIVE Leu/ul (NEGATIVE); UR NITRITE (Dip) NEGATIVE (NEGATIVE); UR SPECIFIC GRAVITY (Dip) 1.025 (1.003-1.030); UR TOTAL PROTEIN (Dip) NEGATIVE (NEGATIVE); UR UROBILINOGEN (Dip) NEGATIVE (NEGATIVE)
[2018-09-17 19:33] LABS: ERYTHROCYTE SEDIMENTATION RATE 32 mm/Hr (0-20)
[2018-09-17] MEDS ORDERED: ONDANSETRON 4 MG INJ IV (22:30)
[2018-09-17] MEDS ORDERED: ALBUTEROL/IPRATROPIUM (NEB) 3 ML AMP HHN (22:30)
[2018-09-17] MEDS ORDERED: NACL 0.9% 3 ML SYG IV (22:30)
[2018-09-17] MEDS ORDERED: ACETAMINOPHEN 325 MG TAB PO (22:30)
[2018-09-17] MEDS ORDERED: GLUCOSE GEL 15 GRAM TUBE BUCCAL (23:30)
[2018-09-17] MEDS ORDERED: GLUCOSE GEL 15 GRAM TUBE PO ×2 (23:30)
[2018-09-17] MEDS ORDERED: GLUCAGON 1 MG INJ IM (23:30)
[2018-09-17] MEDS ORDERED: DEXTROSE 50% 50 ML SYRINGE IV ×2 (23:30)
[2018-09-17 23:32] LABS: LACTIC ACID 0.7 mmol/L (0.5-2.0)
[2018-09-17] MEDS: SOD CHLORIDE 0.9% 1,000 ML IV (23:41)
[2018-09-18] MEDS: INSULIN ASPART [NOVOLOG] 3 ML PEN SC ×5 (00:06→22:19)
[2018-09-18] MEDS ORDERED: INSULIN ASPART [NOVOLOG] 3 ML PEN SC (01:00)
[2018-09-18] MEDS: ACCU-CHEK XX (02:00)
[2018-09-18] MEDS ORDERED: ACCU-CHEK XX (02:00)
[2018-09-18] MEDS: MOMETASONE 0.24 GM INHALER INH ×2 (04:00→08:52)
[2018-09-18] MEDS ORDERED: PENDING SANTYL ORDER FOR WOUND CARE XX (05:30)
[2018-09-18 08:04] LABS: ADD MAN DIFF? NO
[2018-09-18 08:11] LABS: BASOPHIL # 0.1 10^3/ul (0.0-0.1); BASOPHILS % 0.7 % (0.0-2.0); EOSINOPHILS # 0.4 10^3/ul (0.0-0.5); EOSINOPHILS % 5.3 % (0.0-7.0); HEMATOCRIT 35.4 % (42.0-52.0); HEMOGLOBIN 11.8 g/dl (14.0-18.0); LYMPHOCYTES # 2.5 10^3/ul (0.8-2.9); MEAN CORPUSCULAR HGB CONC 33.3 g/dl (32.0-37.0); MEAN CORPUSCULAR VOLUME 83.9 fl (82.0-101.0); MEAN PLATELET VOLUME 10.6 fl (7.4-10.4); MONOCYTE # 0.8 10^3/ul (0.3-0.9); MONOCYTES % 10.9 % (0.0-11.0); NEUTROPHIL # 3.9 10^3/ul (1.6-7.5); NEUTROPHILS % 50.6 % (39.0-77.0); PLATELET COUNT 211 10^3/UL (140-415); RED BLOOD COUNT 4.22 10^6/ul (4.70-6.10); RED CELL DISTRIBUTION WIDTH 13.8 % (11.5-14.5)
[2018-09-18 08:11] LABS: WHITE BLOOD COUNT 7.7 10^3/ul (4.8-10.8)
[2018-09-18 08:30] LABS: ALANINE AMINOTRANSFERASE 15 IU/L (13-69); ALBUMIN 3.6 g/dl (3.3-4.9); ALBUMIN/GLOBULIN RATIO 1.28; ALKALINE PHOSPHATASE 78 IU/L (42-121); ANION GAP 9 (5-13); ASPARTATE AMINO TRANSFERASE 17 IU/L (15-46); BILIRUBIN,INDIRECT 0.4 mg/dl (0-1.1); BILIRUBIN,TOTAL 0.4 mg/dl (0.2-1.3); BLOOD UREA NITROGEN 25 mg/dl (7-20); CALCIUM 8.9 mg/dl (8.4-10.2); CARBON DIOXIDE 23 mmol/L (21-31); CHLORIDE 107 mmol/L (97-110); CHOLESTEROL 184 mg/dl (100-200); CREATININE 1.22 mg/dl (0.61-1.24); Estimated GFR > 60 mL/min (>60); GLUCOSE 160 mg/dl (70-220); MAGNESIUM 1.9 mg/dl (1.7-2.5); PHOSPHORUS 3.9 mg/dl (2.5-4.9); SODIUM 139 mmol/L (135-144); TOTAL PROTEIN 6.4 g/dl (6.1-8.1)
[2018-09-18 08:31] LABS: CHOL/HDL RATIO 4.1 RATIO; HDL CHOLESTEROL 44 mg/dl (28-71); LDL CHOLESTEROL,CALCULATED 105 mg/dl; TRIGLYCERIDES 175 mg/dl (0-149)
[2018-09-18] MEDS: HEPARIN 5,000 UNIT/1 ML VIAL SC ×2 (08:51→21:00)
[2018-09-18] MEDS: SOD CHLORIDE 0.9% 1,000 ML IV ×2 (10:05→18:12)
[2018-09-18] MEDS: SUMATRIPTAN 6 MG/0.5 ML INJ SC (13:39)
[2018-09-18] MEDS: DAKINS 0.0125%(1/40) 473 ML SOLUTION TP (13:41)
[2018-09-18] MEDS: SILVER SULFADIAZINE 1% 25 GM CR TOP (13:41)
[2018-09-18] MEDS: SOD CHLORIDE 0.9% IVPB (18:06)
[2018-09-18] MEDS: DAPTOMYCIN IVPB (18:06)
[2018-09-18] MEDS: RANITIDINE 150 MG TAB PO (21:00)
[2018-09-19] MEDS: ACCU-CHEK XX (02:00)
[2018-09-19] MEDS: SOD CHLORIDE 0.9% 1,000 ML IV ×2 (04:22→17:25)
[2018-09-19 06:41] LABS: CREATINE KINASE 67 IU/L (23-200)
[2018-09-19] MEDS: MOMETASONE 0.24 GM INHALER INH (10:10)
[2018-09-19] MEDS: INSULIN ASPART [NOVOLOG] 3 ML PEN SC ×4 (10:12→20:41)
[2018-09-19] MEDS: HEPARIN 5,000 UNIT/1 ML VIAL SC ×2 (10:13→20:41)
[2018-09-19] MEDS: SILVER SULFADIAZINE 1% 25 GM CR TOP (10:15)
[2018-09-19] MEDS: DAKINS 0.0125%(1/40) 473 ML SOLUTION TP (10:15)
[2018-09-19] MEDS: HYDROCODONE/APAP (5/325) TAB PO (16:13)
[2018-09-19] MEDS: DAPTOMYCIN IVPB (16:13)
[2018-09-19] MEDS: SOD CHLORIDE 0.9% IVPB (16:13)
[2018-09-19] MEDS: RANITIDINE 150 MG TAB PO (20:41)
[2018-09-20] MEDS: ACCU-CHEK XX (02:00)
[2018-09-20 05:44] LABS: ADD MAN DIFF? NO
[2018-09-20 05:58] LABS: WHITE BLOOD COUNT 8.1 10^3/ul (4.8-10.8)
[2018-09-20 05:58] LABS: BASOPHIL # 0.1 10^3/ul (0.0-0.1); BASOPHILS % 0.7 % (0.0-2.0); EOSINOPHILS # 0.4 10^3/ul (0.0-0.5); EOSINOPHILS % 4.3 % (0.0-7.0); HEMATOCRIT 35.3 % (42.0-52.0); HEMOGLOBIN 11.7 g/dl (14.0-18.0); LYMPHOCYTES # 2.7 10^3/ul (0.8-2.9); LYMPHOCYTES % 33.6 % (15.0-51.0); MEAN CORPUSCULAR HEMOGLOBIN 28.2 pg (29.0-33.0); MEAN CORPUSCULAR HGB CONC 33.1 g/dl (32.0-37.0); MEAN CORPUSCULAR VOLUME 85.1 fl (82.0-101.0); MEAN PLATELET VOLUME 10.4 fl (7.4-10.4); MONOCYTE # 0.8 10^3/ul (0.3-0.9); MONOCYTES % 9.4 % (0.0-11.0); NEUTROPHIL # 4.2 10^3/ul (1.6-7.5); NEUTROPHILS % 51.8 % (39.0-77.0); PLATELET COUNT 223 10^3/UL (140-415); RED BLOOD COUNT 4.15 10^6/ul (4.70-6.10); RED CELL DISTRIBUTION WIDTH 13.3 % (11.5-14.5)
[2018-09-20 06:26] LABS: MAGNESIUM 1.9 mg/dl (1.7-2.5)
[2018-09-20 06:26] LABS: PHOSPHORUS 3.8 mg/dl (2.5-4.9)
[2018-09-20 07:00] LABS: ANION GAP 8 (5-13); BLOOD UREA NITROGEN 24 mg/dl (7-20); CARBON DIOXIDE 23 mmol/L (21-31); CHLORIDE 107 mmol/L (97-110); CREATININE 1.22 mg/dl (0.61-1.24); Estimated GFR > 60 mL/min (>60); GLUCOSE 191 mg/dl (70-220); POTASSIUM 4.3 mmol/L (3.5-5.1); SODIUM 138 mmol/L (135-144)
[2018-09-20] MEDS: INSULIN ASPART [NOVOLOG] 3 ML PEN SC ×4 (08:31→20:36)
[2018-09-20] MEDS: HEPARIN 5,000 UNIT/1 ML VIAL SC ×2 (08:32→20:38)
[2018-09-20] MEDS: MOMETASONE 0.24 GM INHALER INH (08:34)
[2018-09-20] MEDS: DAKINS 0.0125%(1/40) 473 ML SOLUTION TP (08:36)
[2018-09-20] MEDS: SILVER SULFADIAZINE 1% 25 GM CR TOP (08:36)
[2018-09-20] MEDS: OXYCODONE/ACETAMINOPHEN (10/325) TAB PO (13:52)
[2018-09-20] MEDS: DAPTOMYCIN IVPB (15:52)
[2018-09-20] MEDS: SOD CHLORIDE 0.9% IVPB (15:52)
[2018-09-20] MEDS: RANITIDINE 150 MG TAB PO (20:38)
[2018-09-21] MEDS: ACCU-CHEK XX (02:00)
[2018-09-21] MEDS: MOMETASONE 0.24 GM INHALER INH (08:42)
[2018-09-21] MEDS: HEPARIN 5,000 UNIT/1 ML VIAL SC ×2 (08:46→20:53)
[2018-09-21] MEDS: INSULIN ASPART [NOVOLOG] 3 ML PEN SC ×4 (08:49→20:58)
[2018-09-21] MEDS: SILVER SULFADIAZINE 1% 25 GM CR TOP (09:00)
[2018-09-21] MEDS: DAKINS 0.0125%(1/40) 473 ML SOLUTION TP (09:00)
[2018-09-21] MEDS: OXYCODONE/ACETAMINOPHEN (10/325) TAB PO (09:08)
[2018-09-21] MEDS: BENAZEPRIL 20 MG TAB PO (15:24)
[2018-09-21] MEDS: SOD CHLORIDE 0.9% IVPB (16:16)
[2018-09-21] MEDS: DAPTOMYCIN IVPB (16:16)
[2018-09-21] MEDS: RANITIDINE 150 MG TAB PO (20:53)
[2018-09-22] MEDS: ACCU-CHEK XX (02:00)
[2018-09-22] MEDS: LEVOFLOXACIN 500 MG TAB PO (06:17)
[2018-09-22] MEDS: MOMETASONE 0.24 GM INHALER INH (08:18)
[2018-09-22] MEDS: BENAZEPRIL 20 MG TAB PO (08:18)
[2018-09-22] MEDS: INSULIN ASPART [NOVOLOG] 3 ML PEN SC ×4 (08:19→20:48)
[2018-09-22] MEDS: HEPARIN 5,000 UNIT/1 ML VIAL SC ×2 (08:19→20:48)
[2018-09-22] MEDS: DAPTOMYCIN IVPB (15:31)
[2018-09-22] MEDS: SOD CHLORIDE 0.9% IVPB (15:31)
[2018-09-22] MEDS: SILVER SULFADIAZINE 1% 25 GM CR TOP (15:35)
[2018-09-22] MEDS: DAKINS 0.0125%(1/40) 473 ML SOLUTION TP (15:35)
[2018-09-22] MEDS: RANITIDINE 150 MG TAB PO (20:49)
[2018-09-23] MEDS: ACCU-CHEK XX (01:51)
[2018-09-23] MEDS: LEVOFLOXACIN 500 MG TAB PO (05:07)
[2018-09-23] MEDS: BENAZEPRIL 20 MG TAB PO (08:30)
[2018-09-23] MEDS: HEPARIN 5,000 UNIT/1 ML VIAL SC ×2 (08:31→20:59)
[2018-09-23] MEDS: INSULIN ASPART [NOVOLOG] 3 ML PEN SC ×4 (08:33→21:00)
[2018-09-23] MEDS: MOMETASONE 0.24 GM INHALER INH (08:34)
[2018-09-23] MEDS: SILVER SULFADIAZINE 1% 25 GM CR TOP (08:38)
[2018-09-23] MEDS: DAKINS 0.0125%(1/40) 473 ML SOLUTION TP (08:38)
[2018-09-23] MEDS: SOD CHLORIDE 0.9% IVPB (15:11)
[2018-09-23] MEDS: DAPTOMYCIN IVPB (15:11)
[2018-09-23] MEDS: RANITIDINE 150 MG TAB PO (21:00)
[2018-09-24] MEDS: ACCU-CHEK XX (02:00)
[2018-09-24] MEDS: LEVOFLOXACIN 500 MG TAB PO (06:41)
[2018-09-24] MEDS: INSULIN ASPART [NOVOLOG] 3 ML PEN SC ×4 (08:30→20:48)
[2018-09-24] MEDS: HEPARIN 5,000 UNIT/1 ML VIAL SC ×2 (08:31→20:50)
[2018-09-24] MEDS: BENAZEPRIL 20 MG TAB PO (08:35)
[2018-09-24] MEDS: MOMETASONE 0.24 GM INHALER INH (09:00)
[2018-09-24] MEDS: HYDROCODONE/APAP (5/325) TAB PO ×3 (09:38→15:44)
[2018-09-24] MEDS: DAKINS 0.0125%(1/40) 473 ML SOLUTION TP (14:41)
[2018-09-24] MEDS: SILVER SULFADIAZINE 1% 25 GM CR TOP (14:42)
[2018-09-24] MEDS: DAPTOMYCIN IVPB (15:44)
[2018-09-24] MEDS: SOD CHLORIDE 0.9% IVPB (15:44)
[2018-09-24] MEDS: RANITIDINE 150 MG TAB PO (20:48)
[2018-09-25] MEDS: ACCU-CHEK XX (01:18)
[2018-09-25] MEDS: LEVOFLOXACIN 500 MG TAB PO (06:45)
[2018-09-25] MEDS: BENAZEPRIL 20 MG TAB PO (08:21)
[2018-09-25] MEDS: SILVER SULFADIAZINE 1% 25 GM CR TOP (08:23)
[2018-09-25] MEDS: DAKINS 0.0125%(1/40) 473 ML SOLUTION TP (08:23)
[2018-09-25] MEDS: HEPARIN 5,000 UNIT/1 ML VIAL SC ×2 (08:24→20:02)
[2018-09-25] MEDS: INSULIN ASPART [NOVOLOG] 3 ML PEN SC ×4 (08:24→20:01)
[2018-09-25] MEDS: MOMETASONE 0.24 GM INHALER INH (08:27)
[2018-09-25] MEDS: OXYCODONE/ACETAMINOPHEN (10/325) TAB PO (12:44)
[2018-09-25] MEDS: DAPTOMYCIN IVPB (15:24)
[2018-09-25] MEDS: SOD CHLORIDE 0.9% IVPB (15:24)
[2018-09-25] MEDS: RANITIDINE 150 MG TAB PO (20:02)
[2018-09-26] MEDS: ALTEPLASE (CATHFLO) 2 MG INJ CATHETER (01:04)
[2018-09-26] MEDS: ACCU-CHEK XX (01:54)
[2018-09-26] MEDS: LEVOFLOXACIN 500 MG TAB PO (05:30)
[2018-09-26 07:17] LABS: CREATINE KINASE 47 IU/L (23-200)
[2018-09-26 07:18] LABS: BLOOD UREA NITROGEN 35 mg/dl (7-20)
[2018-09-26 07:18] LABS: CREATININE 1.35 mg/dl (0.61-1.24)
[2018-09-26] MEDS: BENAZEPRIL 20 MG TAB PO ×2 (08:28→21:06)
[2018-09-26] MEDS: INSULIN ASPART [NOVOLOG] 3 ML PEN SC ×4 (08:31→21:08)
[2018-09-26] MEDS: HYDROCODONE/APAP (5/325) TAB PO (08:33)
[2018-09-26] MEDS: MOMETASONE 0.24 GM INHALER INH (08:41)
[2018-09-26] MEDS: HEPARIN 5,000 UNIT/1 ML VIAL SC ×2 (08:41→21:09)
[2018-09-26] MEDS: DAKINS 0.0125%(1/40) 473 ML SOLUTION TP (08:43)
[2018-09-26] MEDS: SILVER SULFADIAZINE 1% 25 GM CR TOP (09:00)
[2018-09-26] MEDS: SOD CHLORIDE 0.9% IVPB (15:20)
[2018-09-26] MEDS: DAPTOMYCIN IVPB (15:20)
[2018-09-26] MEDS: RANITIDINE 150 MG TAB PO (21:05)
[2018-09-26] MEDS: INSULIN GLARGINE [LANTus] (100 UNITS/ML) SYG SC (21:10)
[2018-09-27] MEDS: ACCU-CHEK XX (02:00)
[2018-09-27] MEDS: LEVOFLOXACIN 500 MG TAB PO (06:30)
[2018-09-27] MEDS: MOMETASONE 0.24 GM INHALER INH (08:37)
[2018-09-27] MEDS: INSULIN ASPART [NOVOLOG] 3 ML PEN SC ×4 (08:40→20:45)
[2018-09-27] MEDS: SILVER SULFADIAZINE 1% 25 GM CR TOP (08:41)
[2018-09-27] MEDS: DAKINS 0.0125%(1/40) 473 ML SOLUTION TP (08:41)
[2018-09-27] MEDS: HEPARIN 5,000 UNIT/1 ML VIAL SC ×2 (08:44→20:45)
[2018-09-27] MEDS: OXYCODONE/ACETAMINOPHEN (10/325) TAB PO ×2 (08:53→14:16)
[2018-09-27] MEDS: SOD CHLORIDE 0.9% IVPB (16:02)
[2018-09-27] MEDS: DAPTOMYCIN IVPB (16:02)
[2018-09-27] MEDS: SOD CHLORIDE 0.45% 1,000 ML IV (19:49)
[2018-09-27] MEDS: BENAZEPRIL 20 MG TAB PO (20:48)
[2018-09-27] MEDS: RANITIDINE 150 MG TAB PO (20:49)
[2018-09-27] MEDS: INSULIN GLARGINE [LANTus] (100 UNITS/ML) SYG SC (20:55)
[2018-09-28] MEDS: ACCU-CHEK XX (02:00)
[2018-09-28] MEDS: LEVOFLOXACIN 500 MG TAB PO (06:35)
[2018-09-28] MEDS: DAKINS 0.0125%(1/40) 473 ML SOLUTION TP (09:00)
[2018-09-28] MEDS: SILVER SULFADIAZINE 1% 25 GM CR TOP (09:00)
[2018-09-28] MEDS: HEPARIN 5,000 UNIT/1 ML VIAL SC ×2 (09:03→21:06)
[2018-09-28] MEDS: INSULIN ASPART [NOVOLOG] 3 ML PEN SC ×4 (09:04→21:05)
[2018-09-28] MEDS: MOMETASONE 0.24 GM INHALER INH (09:04)
[2018-09-28] MEDS: OXYCODONE/ACETAMINOPHEN (10/325) TAB PO (09:05)
[2018-09-28] MEDS: DAPTOMYCIN IVPB (14:47)
[2018-09-28] MEDS: SOD CHLORIDE 0.9% IVPB (14:47)
[2018-09-28] MEDS: RANITIDINE 150 MG TAB PO ×2 (21:00→21:07)
[2018-09-28] MEDS: INSULIN GLARGINE [LANTus] (100 UNITS/ML) SYG SC (21:07)
[2018-09-28] MEDS: BENAZEPRIL 20 MG TAB PO (21:08)
[2018-09-29] MEDS: ACCU-CHEK XX (02:00)
[2018-09-29] MEDS: LEVOFLOXACIN 500 MG TAB PO (05:13)
[2018-09-29 05:31] LABS: ADD MAN DIFF? NO
[2018-09-29 05:36] LABS: WHITE BLOOD COUNT 8.1 10^3/ul (4.8-10.8)
[2018-09-29 05:36] LABS: BASOPHIL # 0.1 10^3/ul (0.0-0.1); BASOPHILS % 0.7 % (0.0-2.0); EOSINOPHILS # 0.3 10^3/ul (0.0-0.5); EOSINOPHILS % 3.2 % (0.0-7.0); HEMOGLOBIN 12.8 g/dl (14.0-18.0); LYMPHOCYTES # 2.4 10^3/ul (0.8-2.9); LYMPHOCYTES % 30.1 % (15.0-51.0); MEAN CORPUSCULAR HEMOGLOBIN 27.8 pg (29.0-33.0); MEAN CORPUSCULAR HGB CONC 33.7 g/dl (32.0-37.0); MEAN CORPUSCULAR VOLUME 82.6 fl (82.0-101.0); MEAN PLATELET VOLUME 10.2 fl (7.4-10.4); MONOCYTE # 0.8 10^3/ul (0.3-0.9); MONOCYTES % 10.2 % (0.0-11.0); NEUTROPHIL # 4.5 10^3/ul (1.6-7.5); NEUTROPHILS % 55.3 % (39.0-77.0); PLATELET COUNT 219 10^3/UL (140-415); RED CELL DISTRIBUTION WIDTH 13.7 % (11.5-14.5)
[2018-09-29 06:05] LABS: ANION GAP 8 (5-13); BLOOD UREA NITROGEN 33 mg/dl (7-20); CALCIUM 9.2 mg/dl (8.4-10.2); CARBON DIOXIDE 24 mmol/L (21-31); CHLORIDE 107 mmol/L (97-110); CREATININE 1.36 mg/dl (0.61-1.24); Estimated GFR 55 mL/min (>60); GLUCOSE 185 mg/dl (70-220); POTASSIUM 4.7 mmol/L (3.5-5.1); SODIUM 139 mmol/L (135-144)
[2018-09-29] MEDS: INSULIN ASPART [NOVOLOG] 3 ML PEN SC ×4 (08:39→20:51)
[2018-09-29] MEDS: DAKINS 0.0125%(1/40) 473 ML SOLUTION TP (09:00)
[2018-09-29] MEDS: MOMETASONE 0.24 GM INHALER INH (09:00)
[2018-09-29] MEDS: SILVER SULFADIAZINE 1% 25 GM CR TOP (09:00)
[2018-09-29] MEDS: HEPARIN 5,000 UNIT/1 ML VIAL SC ×2 (09:53→20:52)
[2018-09-29] MEDS: OXYCODONE/ACETAMINOPHEN (10/325) TAB PO (12:37)
[2018-09-29] MEDS: DAPTOMYCIN IVPB (15:07)
[2018-09-29] MEDS: SOD CHLORIDE 0.9% IVPB (15:07)
[2018-09-29] MEDS: INSULIN GLARGINE [LANTus] (100 UNITS/ML) SYG SC (20:51)
[2018-09-29] MEDS: RANITIDINE 150 MG TAB PO (20:54)
[2018-09-29] MEDS: BENAZEPRIL 20 MG TAB PO (20:54)
[2018-09-30] MEDS: ACCU-CHEK XX (02:00)
[2018-09-30] MEDS: LEVOFLOXACIN 500 MG TAB PO (05:13)
[2018-09-30] MEDS: MOMETASONE 0.24 GM INHALER INH (08:24)
[2018-09-30] MEDS: HEPARIN 5,000 UNIT/1 ML VIAL SC ×2 (08:27→20:31)
[2018-09-30] MEDS: INSULIN ASPART [NOVOLOG] 3 ML PEN SC ×4 (08:45→20:32)
[2018-09-30] MEDS: SOD CHLORIDE 0.9% IVPB (14:38)
[2018-09-30] MEDS: DAPTOMYCIN IVPB (14:38)
[2018-09-30] MEDS: OXYCODONE/ACETAMINOPHEN (10/325) TAB PO (15:15)
[2018-09-30] MEDS: BENAZEPRIL 20 MG TAB PO (20:29)
[2018-09-30] MEDS: INSULIN GLARGINE [LANTus] (100 UNITS/ML) SYG SC (20:31)
[2018-09-30] MEDS: RANITIDINE 150 MG TAB PO (20:38)
[2018-10-01] MEDS: ACCU-CHEK XX (02:00)
[2018-10-01] MEDS: LEVOFLOXACIN 500 MG TAB PO (05:59)
[2018-10-01] MEDS: MOMETASONE 0.24 GM INHALER INH (08:15)
[2018-10-01] MEDS: INSULIN ASPART [NOVOLOG] 3 ML PEN SC ×4 (08:16→20:47)
[2018-10-01] MEDS: HEPARIN 5,000 UNIT/1 ML VIAL SC ×2 (08:17→20:43)
[2018-10-01] MEDS: OXYCODONE/ACETAMINOPHEN (10/325) TAB PO (09:26)
[2018-10-01] MEDS: BENAZEPRIL 20 MG TAB PO (20:42)
[2018-10-01] MEDS: INSULIN GLARGINE [LANTus] (100 UNITS/ML) SYG SC (20:43)
[2018-10-01] MEDS: RANITIDINE 150 MG TAB PO (20:47)
[2018-10-02] MEDS: ACCU-CHEK XX (01:39)
[2018-10-02] MEDS: INSULIN ASPART [NOVOLOG] 3 ML PEN SC ×4 (08:24→21:00)
[2018-10-02] MEDS: MOMETASONE 0.24 GM INHALER INH (08:27)
[2018-10-02] MEDS: HEPARIN 5,000 UNIT/1 ML VIAL SC ×2 (08:27→21:02)
[2018-10-02] MEDS: OXYCODONE/ACETAMINOPHEN (10/325) TAB PO (08:33)
[2018-10-02] MEDS: RANITIDINE 150 MG TAB PO (21:00)
[2018-10-02] MEDS: INSULIN GLARGINE [LANTus] (100 UNITS/ML) SYG SC (21:01)
[2018-10-02] MEDS: BENAZEPRIL 20 MG TAB PO (21:03)
[2018-10-03] MEDS: ACCU-CHEK XX (02:00)
[2018-10-03] MEDS: MOMETASONE 0.24 GM INHALER INH (08:44)
[2018-10-03] MEDS: INSULIN ASPART [NOVOLOG] 3 ML PEN SC ×4 (08:53→21:02)
[2018-10-03] MEDS: HEPARIN 5,000 UNIT/1 ML VIAL SC ×2 (08:54→21:03)
[2018-10-03] MEDS: OXYCODONE/ACETAMINOPHEN (10/325) TAB PO (12:51)
[2018-10-03] MEDS: RANITIDINE 150 MG TAB PO (21:00)
[2018-10-03] MEDS: INSULIN GLARGINE [LANTus] (100 UNITS/ML) SYG SC (21:01)
[2018-10-03] MEDS: BENAZEPRIL 20 MG TAB PO (21:03)
[2018-10-04] MEDS: ACCU-CHEK XX (02:00)
[2018-10-04] MEDS: HEPARIN 5,000 UNIT/1 ML VIAL SC (09:00)
[2018-10-04] MEDS: INSULIN ASPART [NOVOLOG] 3 ML PEN SC ×2 (09:01→13:22)
[2018-10-04] MEDS: OXYCODONE/ACETAMINOPHEN (10/325) TAB PO ×2 (09:01→14:26)
[2018-10-04] MEDS: MOMETASONE 0.24 GM INHALER INH (09:01)
== END 2018-10-04 15:36 | DRG 638 ==
LOC: E/R 16:39 → 5EC 18:20
DX: E11.621 Type 2 diabetes mellitus with foot ulcer (principal); L97.419 Non-pressure chronic ulcer of right heel and midfoot with unspecified severity; E11.51 Type 2 diabetes mellitus with diabetic peripheral angiopathy without gangrene; E66.9 Obesity, unspecified; E11.42 Type 2 diabetes mellitus with diabetic polyneuropathy; F17.200 Nicotine dependence, unspecified, uncomplicated; M25.871 Other specified joint disorders, right ankle and foot; B95.62 Methicillin resistant Staphylococcus aureus infection as the cause of diseases classified elsewhere; B96.89 Other specified bacterial agents as the cause of diseases classified elsewhere; Z89.432 Acquired absence of left foot; Z68.38 Body mass index [BMI] 38.0-38.9, adult
CPT/HCPCS: 73630; 80048; 80053; 80061; 81003; 82550; 82565; 82962; 83036; 83605; 83735; 84100; 84484; 84520; 85025; 85610; 85651; 85730; 86140; 87040-91; 87070; 87081; 87086; 93005; 97110; 97116; 97162; 97530; 99285-25